=== PATIENT | male | born 1935 | race Caucasian/White ===

== ENCOUNTER 2016-12-11 14:36 | Outpatient (CLI) | payer MEDICARE ==
[2016-12-11 15:05] LABS: Anion Gap 14 mmol/L (10-20); BUN (Urea Nitrogen) 36 mg/dL (8.4-25.7); Calc. Creatinine Clearance 0 mL/min (70-130); Calcium 8.4 mg/dL (7.8-10.44); Carbon Dioxide 21 mmol/L (23-31); Chloride 111 mmol/L (98-107); Estimated GFR-MDRD 34; Glucose 96 mg/dL (83-110); Potassium 4.8 mmol/L (3.5-5.1); Sodium 141 mmol/L (136-145)
== END 2016-12-11 14:37 | disposition home or self-care (01) ==
LOC: MADLAB 14:36
PROVIDERS: ATTEND Internal Medicine Nephrology
DX: I13.0 Hypertensive heart and chronic kidney disease with heart failure and stage 1 through stage 4 chronic kidney disease, or unspecified chronic kidney disease (principal); I50.23 Acute on chronic systolic (congestive) heart failure; N18.9 Chronic kidney disease, unspecified
CPT/HCPCS: 36415; 80048

== ENCOUNTER 2016-12-17 18:41 | Outpatient (CLI) | payer MEDICARE ==
[2016-12-17 20:22] LABS: Anion Gap 19 mmol/L (10-20); BUN (Urea Nitrogen) 44 mg/dL (8.4-25.7); Calc. Creatinine Clearance 0 mL/min (70-130); Calcium 8.6 mg/dL (7.8-10.44); Carbon Dioxide 20 mmol/L (23-31); Chloride 110 mmol/L (98-107); Estimated GFR-MDRD 26; Glucose 77 mg/dL (83-110); Potassium 4.6 mmol/L (3.5-5.1); Sodium 144 mmol/L (136-145)
[2016-12-18 11:43] LABS: Creatinine, Urine 50.27 mg/dL (63-166); Potassium, Urine 30.4 mmol/L; Protein, Urine Random Quant Less than 10 mg/dL; Sodium, Urine 87 mmol/L (Not Available)
== END 2016-12-17 18:42 | disposition home or self-care (01) ==
LOC: MADLAB 18:41
PROVIDERS: ATTEND Internal Medicine Nephrology
DX: I13.0 Hypertensive heart and chronic kidney disease with heart failure and stage 1 through stage 4 chronic kidney disease, or unspecified chronic kidney disease (principal); I50.23 Acute on chronic systolic (congestive) heart failure; N18.9 Chronic kidney disease, unspecified
CPT/HCPCS: 80048; 82436; 82570; 83880; 84133; 84156; 84300

== ENCOUNTER 2016-12-28 16:22 | Inpatient (IN) | payer MEDICARE ==
--- NOTE | 2016-12-28 19:56 | HP ---
The patient admitted to correction at [facility] on 12/28/2016. CHIEF COMPLAINT: Weak. PRESENT ILLNESS: The patient is an 81-year-old white male who lives at his home with his who assist him with his ADLs and all his instrumental ADLs. Patient has a history of ischemic cardiomyopathy with an ejection fraction of 25 %-30% with a history of chronic diastolic congestive heart failure. He also has a history of diabetes, atrial fibrillation, hypertension, chronic renal disease. The patient is seen by [facility]. The patient was referred to the emergency room on 12/20/2016, because home health found that his blood pressure was very low, the patient remembers it was about 75/45. He also had been sick with bronchitis. The patient was initially seen in the [facility] emergency room in [place] and then transferred to [facility] for admission on 12/20/2016. The patient's final diagnosis there was an acute bronchitis, cfo-WQ-[id number] elevated myocardial infarction, acute on chronic renal failure, dehydration and chronic atrial fibrillation, which the rate has been controlled. Patient's pxk-EO-hhvqpdp elevated myocardial infarction was managed medically. He apparently underwent a stress test that showed no acute reversible ischemia. The patient had some mild congestive heart failure that apparently resolved. The patient was moved to extended care to rehab at [facility] on 12/25/2016. The family wanted to get back to the [place] area for further therapy, because it would just be much easier for the family and keep him off the highway to [place] to see him and assisting him. Patient was transferred to [facility] on the late afternoon of 12/28/2016. Patient was interviewed and said that he had been hospitalized recently in [place] for the low blood pressure and the bronchitis and he was doing better , but still very weak and not back to his usual baseline. He also said that he had recently injured his right foot with what sounds like a hyperextension of the toes resulting in bruising and swelling to the forefoot dorsally. X-ray showed no fracture. He said he has been managed with a walking lower leg boot and at nighttime he takes this off. He says his foot is a little better, but is swelled. He said his breathing is doing better, but he still has a little cough. PAST HISTORY: Hospitalized at [facility] from 12/20/2016-12/2016 for [id number]-RV-[id number] elevated myocardial infarction, medically managed, stress test showed no acute ischemia, mild congestive heart failure, apparently that resolved and some dehydration and acute renal failure from the dehydration. This all had resolved. He also has chronic atrial fibrillation for which he has been on Xarelto and was started on Eliquis. The patient was moved to the [facility] on 12/25/2016 where he stayed until 12/28. Historically, the patient has ischemic cardiomyopathy with an ejection fraction of 25%-30%, complicated by chronic diastolic congestive failure. He has an AICD, he has a history of hypertension, hyperlipidemia, obstructive sleep apnea for which he uses a CPAP and oxygen at nighttime. Patient had an acute bronchitis that is getting better. Patient has had a left cerebellar stroke in the past that has left him with no impairment. The patient also has a history of diabetes, but do not see any record of that he is receiving anything other than regular insulin on sliding scale during his hospital stay. Peripheral neuropathy. S/P CAB, S/P AICD/pacemaker and S/P abdominal aortic aneursym resection. PRESENT MEDICINES: Lyrica 75 mg t.i.d., DuoNeb by nebulizer 4 times a day as needed, Eliquis 2.5 mg b.i.d., Humulin R mild sliding scale, Nexium 40 mg daily , potassium chloride 10 mEq daily, aspirin 325 mg daily, furosemide 40 mg daily , Xarelto 15 mg daily, metoprolol succinate extended release 100 mg b.i.d., Cymbalta 60 mg daily. ALLERGIES: No known allergies. REVIEW OF SYSTEMS: General: Patient does not think he has gained or lost any recent weight. HEENT: No complaints. Pulmonary: Patient says he has a little cough. The patient denies any shortness of breath at rest or lying down. Cardiovascular: No chest pain. Gastrointestinal: No nausea or vomiting or change in bowel habits. Genitourinary: No complaints. Musculoskeletal: Right foot is bruised and swelled and he thinks it is a little better. He is able to walk with the use of his walking boot. He can walk some without it. ADLs: The patient is able to ambulate with the use of a walker. Patient says he needs a little help with bathing and dressing. Patient is able to feed himself. The patient requires assistance with all his instrumental ADLs. HABITS: Alcohol occasionally. Patient will have a beer. Tobacco none. SOCIAL HISTORY: Patient lives at home with his . CODE STATUS: DNR. PHYSICAL EXAMINATION: GENERAL: Shows an 81-year-old white male who is sitting in his bedside and preparing to have supper. He is alert, talkative, and appears comfortable in no distress. He is wearing O2 by nasal cannula at 2 liters and has a walking boot on his right foot lower leg. VITAL SIGNS: His temperature is 97.3, respirations 22, O2 saturation was 88 on room air, blood pressure 110/73. His weight is 226. 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 EYES: Pupils are equal, round, and reactive. EARS: Patient wears a hearing aid in the left ear, there are some cerumen obscuring the TMs bilaterally. NOSE: Normal. MOUTH AND THROAT: Normal. NECK: Carotids are equal and strong, could not hear any bruits. LUNGS: The patient has moderate breath sounds. There is expiratory rhonchi on expiration, did not hear any rales. HEART: Regular rate. ABDOMEN: Obese. No organomegaly. EXTREMITIES: Lower extremities, there is trace edema. The lower leg boot on the right lower leg foot was removed. There is moderate edema in the right foot with bruising over the forefoot and toes. The foot is warm, but could not feel the dorsalis pedis. There is a contusion to the right foot. NEUROLOGIC: The patient is alert and knows he is in the hospital and seemed to understand what has recently happened with him. He has generalized weakness, but no focal weakness. IMPRESSION: 1. Weakness and deconditioning and gait abnormality. A. Exacerbated with the acute illness and hospitalization. B. Gait stabilized with a rolling walker. 2. Hospitalized at [facility] from 12/20/2016 until 2016 for xak-VL-lxhrodh elevated myocardial infarction with no ischemia on stress test, medically managed, acute bronchitis, dehydration with acute on chronic kidney disease and atrial fibrillation. 3. Ischemic cardiomyopathy. A. Ejection fraction per patient 25%-30%. B. Complicated by chronic diastolic congestive failure. 1. No evidence of acute congestive heart failure as of admission on . 2. Status post AICD. 4. Coronary artery disease. A. History of a hht-QE-bcammmm elevated myocardial infarction, managed medically with a stress test showing no acute ischemia occurred on 12/20/2016. 5. Chronic atrial fibrillation. A. Rate controlled. B. On chronic anticoagulation. 6. Hypertension. 7. Chronic kidney disease. A. Complicated by acute renal failure from dehydration that has resolved. 8. Episode of hypotension upon admission to the hospital on 12/20/2016. A. Etiology, it is felt that the patient may have missed taking medication resulting in the hypotensive episode. 9. Obstructive sleep apnea. A. On CPAP. 10. Hypoxemia. A. Utilizes O2 when sleeping and p.r.n. 11. Acute bronchitis, improving. 12. Suspect underlying chronic obstructive pulmonary disease. 13. Diabetes type 2. 14. Peripheral neuropathy of the lower extremities. PLAN: The patient has been admitted to [facility] to the correction unit for purpose of physical therapy and occupational therapy in an effort to improve his functional capability. We will leave the patient on the Eliquis. His records show also Xarelto, we will stop this. We will reassess the patient with chest x-ray and EKG and general lab work in the morning. See orders. CODE STATUS: DNR. MTDD
--- NOTE | 2016-12-28 19:57 | RAD ---
RADIOGRAPH CHEST 1 VIEW: 12/28/16 HISTORY: 81-year-old male with bronchitis and cardiomyopathy. COMPARISON: None. FINDINGS: There is cardiomegaly. There is no evidence of air space density, pulmonary edema, or pneumothorax. The lateral costophrenic angles are sharp. IMPRESSION: 1) No acute pulmonary findings. 2) Severe cardiomegaly without congestive heart failure. 3) Automatic implantable cardioverter/defibrillator. 4) Status post coronary artery bypass graft surgery is evidence for coronary atherosclerotic disease . leela [] POS: YASIR
[2016-12-28] MEDS: Pregabalin 25 MG CAP PO SCH (20:51)
[2016-12-28] MEDS: Apixaban 5 MG TAB PO SCH (20:51)
[2016-12-28] MEDS: Acetaminophen 325 MG TAB PO PRN (21:32)
[2016-12-29 05:18] LABS: Hemoglobin A1c 5.9 % (4.0-6.0)
[2016-12-29 05:26] LABS: ALT (SGPT) 11 U/L (8-55); AST (SGOT) 20 U/L (5-34); Albumin 3.2 g/dL (3.4-4.8); Alkaline Phosphatase 83 U/L (40-150); Anion Gap 15 mmol/L (10-20); BUN (Urea Nitrogen) 67 mg/dL (8.4-25.7); Bilirubin, Total 0.8 mg/dL (0.2-1.2); Calc. Creatinine Clearance 31 mL/min (70-130); Calcium 8.8 mg/dL (7.8-10.44); Carbon Dioxide 25 mmol/L (23-31); Cardiac Risk 3.4 (Less than 4.5); Cholesterol 114 mg/dl (< 200 Desired); Estimated GFR-MDRD 23; Glucose 104 mg/dL (83-110); HDL Cholesterol 34 mg/dL (>60 Neg Risk); LDL Cholesterol, Calculated 66 mg/dL; Triglycerides 71 mg/dL (Less than 150)
[2016-12-29 05:35] LABS: #Basophils 0.1 thou/uL (0.0-0.2); #Eosinphils 0.4 thou/uL (0.0-0.7); #Lymphocytes 1.5 thou/uL (1.20-3.40); #Monocytes 0.6 thou/uL (0.11-0.59); #Neutrophils 2.6 thou/uL (1.40-6.50); %Basophils 1.4 % (0.0-1.0); %Eosinophils 7.1 % (0.0-10.0); %Lymphocytes 28.7 % (21.0-51.0); %Neutrophils 50.8 % (42.0-75.0); Hemoglobin 11.5 g/dL (14.0-18.0); Mean Corpuscular HGB CONC 31.8 g/dL (32.0-36.0); Mean Corpuscular Hemoglobin 31.6 pg (27.0-31.0); Mean Corpuscular Volume 99.4 fl (80.0-94.0); Platelet Count 90 thou/uL (130-400); RBC Distribution Width 15.3 % (11.5-14.5); Red Blood Cell (RBC) Count 3.65 mill/uL (4.70-6.10); White Blood Cell (WBC) Count 5.1 thou/uL (4.8-10.8)
[2016-12-29 05:36] LABS: Anisocytosis SLIGHT = 6-15 cells (100X) (0-5/hpf); Eosinophils 8 % (0-10); Giant Platelets SLIGHT; Hypochromia SLIGHT = 6-15 cells (100X) (0-5/hpf); Lymphocytes 21 % (21-51); MDiff Complete? YES; Macrocytosis SLIGHT = 6-15 cells (100X) (0-5/hpf); Monocytes 10 % (0-10); Neutrophil 61 % (42-75); PLT Morphology Comment Appears Decreased; Poikilocytosis SLIGHT = 6-15 cells (100X) (0-5/hpf); RBC Morphology ABNORMAL
[2016-12-29 05:40] LABS: Globulin 1.7 g/dL (2.4-3.5); Protein, Total 4.9 g/dL (5.8-8.1)
[2016-12-29 05:44] LABS: Sodium 139 mmol/L (136-145)
[2016-12-29 05:47] LABS: Chloride 103 mmol/L (98-107)
[2016-12-29] MEDS: Furosemide 40 MG TAB PO SCH (08:44)
[2016-12-29] MEDS: Aspirin 325 MG TAB PO SCH (08:44)
[2016-12-29] MEDS: Apixaban 5 MG TAB PO SCH ×2 (08:45→20:20)
[2016-12-29] MEDS: Potassium Chloride 10 MEQ TAB PO SCH (08:46)
[2016-12-29] MEDS: Pregabalin 25 MG CAP PO SCH ×3 (08:47→20:21)
--- NOTE | 2016-12-29 13:26 | PRG ---
DATE OF SERVICE: 12/29/2016 SUBJECTIVE: The patient says he feels better today. Rested well last night, he is still cough vladislav le bit, he thinks it is about the same. His foot is feeling a little better. OBJECTIVE: GENERAL: The patient is lying in bed. He is very talkative, looks very comfortable and in no distr ess. VITAL SIGNS: His vital signs shows a temperature of 96.4, pulse 96, respirations 20, O2 saturation on 2 liters 96%, blood pressure 128/86. LUNGS: Have expiratory rhonchi present. There are no rales. HEART: Regular rate with occasional ectopic beat. EXTREMITIES: Trace edema. DIAGNOSTIC AND LABORATORY DATA: EKG shows probable paced rhythm with occasional ectopic beat, rate was 108. Chest x-ray shows cardiomegaly. There was no pulmonary density nor edema. The patient do es have severe cardiomegaly without acute CHF and he has an AICD present. His labs shows an H\T\H o f 11.5 and 36.3, white blood cell count 5100 with 61% segs, 29% lymphocytes, and platelet count 90,0 00. Sodium 139, potassium 4, BUN 67, creatinine 2.65 with a GFR of 23. FBS 115, hemoglobin A1c 5.9 , albumin 3.2, cholesterol 114, LDL 66, triglycerides 71, HDL 34. TSH 1.84. IMPRESSION: 1. Weakness and deconditioning and gait abnormality. A. Exacerbated with the acute illness and hospitalization. B. Gait stabilized with a rolling walker. C. Stable as of 12/30/2016. 2. Hospitalized at [facility] from 12/20/2016 until 12/28/2016 for ikj-GS-[id number] elevated myocardial infarction with no ischemia on stress test, medically managed, acute bronchitis , dehydration with acute on chronic kidney disease and atrial fibrillation. 3. Ischemic cardiomyopathy. A. Ejection fraction per patient 25%-30%. B. Complicated by chronic diastolic congestive failure. 1. No evidence of acute congestive heart failure as of admission on 12/29/2014. 2. Status post AICD/pacemaker. 4. Coronary artery disease. A. History of a yxu-OY-jxrektw elevated myocardial infarction, managed medically with a stress test showing no acute ischemia occurred on 12/20/2016. B. Status post CAD. 5. Chronic atrial fibrillation. A. Rate controlled. B. On chronic anticoagulation. 6. Hypertension. 7. Chronic kidney disease. A. Complicated by acute renal failure from dehydration that has resolved. GFR 23 as of 12/29/2016. 8. Episode of hypotension upon admission to the hospital on 12/20/2016. A. Etiology, it is felt that the patient may have missed taking medication resulting in the hypoten sive episode. 9. Obstructive sleep apnea. A. On CPAP. 10. Hypoxemia. A. Utilizes O2 when sleeping and p.r.n. 11. Acute bronchitis, improving. 12. Suspect underlying chronic obstructive pulmonary disease. 13. Diabetes type 2. Hemoglobin A1c 5.9 and FBS 104 on no medication. 14. Peripheral neuropathy of the lower extremities. PLAN: The patient looks little better today. Physical therapy, occupational therapy will begin wor jaki with him. We will continue his present medicines. Continue neb treatments. We will monitor r enal function and way every other day.
[2016-12-30] MEDS: Pregabalin 25 MG CAP PO SCH ×3 (08:00→20:28)
[2016-12-30] MEDS: Aspirin 325 MG TAB PO SCH (08:02)
[2016-12-30] MEDS: Furosemide 40 MG TAB PO SCH (08:03)
[2016-12-30] MEDS: Apixaban 5 MG TAB PO SCH ×2 (08:03→20:27)
[2016-12-30] MEDS: Potassium Chloride 10 MEQ TAB PO SCH (08:04)
[2016-12-30] MEDS: Pregabalin 50 MG CAP PO SCH ×2 (15:09→20:27)
[2016-12-30] MEDS: Acetaminophen 325 MG TAB PO PRN (20:43)
[2016-12-31 06:41] LABS: Anion Gap 15 mmol/L (10-20); BUN (Urea Nitrogen) 66 mg/dL (8.4-25.7); Calc. Creatinine Clearance 33 mL/min (70-130); Calcium 9.2 mg/dL (7.8-10.44); Carbon Dioxide 24 mmol/L (23-31); Chloride 108 mmol/L (98-107); Estimated GFR-MDRD 25; Glucose 108 mg/dL (83-110); Potassium 4.1 mmol/L (3.5-5.1); Sodium 143 mmol/L (136-145)
[2016-12-31 07:13] LABS: #Basophils 0.1 thou/uL (0.0-0.2); #Eosinphils 0.2 thou/uL (0.0-0.7); #Lymphocytes 1.3 thou/uL (1.20-3.40); #Monocytes 0.5 thou/uL (0.11-0.59); #Neutrophils 2.2 thou/uL (1.40-6.50); %Basophils 1.2 % (0.0-1.0); %Eosinophils 6.1 % (0.0-10.0); %Lymphocytes 29.8 % (21.0-51.0); %Neutrophils 50.9 % (42.0-75.0); Hemoglobin 12.6 g/dL (14.0-18.0); Mean Corpuscular HGB CONC 32.2 g/dL (32.0-36.0); Mean Corpuscular Hemoglobin 32.3 pg (27.0-31.0); Mean Corpuscular Volume 100.6 fl (80.0-94.0); Mean Platelet Volume 9.4 fL (7.4-10.4); Platelet Count 100 thou/uL (130-400); RBC Distribution Width 15.5 % (11.5-14.5); Red Blood Cell (RBC) Count 3.87 mill/uL (4.70-6.10); White Blood Cell (WBC) Count 4.1 thou/uL (4.8-10.8)
[2016-12-31 07:19] LABS: MDiff Complete? YES; Manual Diff?? YES
[2016-12-31 07:20] LABS: Anisocytosis SLIGHT = 6-15 cells (100X) (0-5/hpf); Band 1 % (5-11); Eosinophils 1 % (0-10); Lymphocytes 27 % (21-51); Monocytes 8 % (0-10); Neutrophil 68 % (42-75)
[2016-12-31 07:21] LABS: PLT Morphology Comment Appears Decreased
[2016-12-31] MEDS: Furosemide 40 MG TAB PO SCH (08:25)
[2016-12-31] MEDS: Potassium Chloride 10 MEQ TAB PO SCH (08:26)
[2016-12-31] MEDS: Aspirin 325 MG TAB PO SCH (08:26)
[2016-12-31] MEDS: Apixaban 5 MG TAB PO SCH ×2 (08:27→20:11)
[2016-12-31] MEDS ORDERED: Pregabalin 25 MG CAP PO SCH (09:00)
--- NOTE | 2016-12-31 09:00 | PRG ---
DATE SERVICE: 12/31/2016 SUBJECTIVE: The patient thinks he is doing better. He says his right foot feels better. He says h e had a good night. He is sleeping with the CPAP mask. The patient yesterday had a left lower cani ne tooth that broke, it was on the left lower. He has only those 2 teeth on the mandible that are used to secure a lower denture. The patient says he will see his dentist about this. The area is n ot hurting. OBJECTIVE: The patient is lying in bed. He is alert and appears very comfortable and in no distres s. His temperature is 96.1, pulse 101, respirations 16, O2 sat 96% on 2 liters, blood pressure 133/ 80. His weight is stable at 226. His lungs have no rales. There are good breath sounds. There ar e some coarse expiratory breath sounds and some rhonchi, but these are less. Heart, regular rate. E xtremities, no edema. The bruising and swelling over the dorsum of the right foot and toes is dimin ishing. Lab shows an H\T\H of 12.6 and 38.7. White cell count 4100 with 68% segs, 30% lymphocytes, and plat elet count of up to 100,000. His sodium is 143, potassium 4.1. His BUN is 66, creatinine 2.45. GF R is up to 25. FBS is 108. On the mouth, the patient's mandibular teeth shows that he has remaining right-sided canine tooth. The one on the left side has fractured, it looks like there is remnants of tooth at the gumline. Th ere is no surrounding redness. IMPRESSION: 1. Weakness and deconditioning and gait abnormality. A. Exacerbated with the acute illness and hospitalization. B. Gait stabilized with a rolling walker. C. Stable as of 12/31/2016. 2. Hospitalized at [facility] from 12/20/2016 until 12/28/2016 for mmx-WT-mzrbwse elevated myocardial infarction with no ischemia on stress test, medically managed, acute bronchitis , dehydration with acute on chronic kidney disease and atrial fibrillation. 3. Ischemic cardiomyopathy. A. Ejection fraction per patient 25%-30%. B. Complicated by chronic diastolic congestive failure. 1. No evidence of acute congestive heart failure as of 12/31/2016. 2. Status post AICD/pacemaker. 4. Coronary artery disease. A. History of a abd-FS-zxlmrqh elevated myocardial infarction, managed medically with a stress test showing no acute ischemia occurred on 12/20/2016. B. Status post CAD. 5. Chronic atrial fibrillation. A. Rate controlled. B. On chronic anticoagulation. 6. Hypertension. 7. Chronic kidney disease. A. Complicated by acute renal failure from dehydration that has resolved. GFR 23 as of 12/29/2016. B. GFR 25 as of 12/31/2016. 8. Episode of hypotension upon admission to the hospital on 12/20/2016. A. Etiology, it is felt that the patient may have missed taking medication resulting in the hypoten sive episode. 9. Obstructive sleep apnea. A. On CPAP. 10. Hypoxemia. A. Utilizes O2 when sleeping and p.r.n. 11. Acute bronchitis. A. Improving as of 12/31/2016. 12. Suspect underlying chronic obstructive pulmonary disease. 13. Diabetes type 2. Hemoglobin A1c 5.9 and FBS 104 on no medication. 14. Peripheral neuropathy of the lower extremities. 15. Contusion to the right forefoot. A. Improving with decreased bruising and swelling as of 12/31/2016. PLAN: The patient looks better today. We will continue present care. We will continue physical th erapy. The patient will arrange for dental appointment to have that tooth that broke fixed and see what they can do to help stabilize his lower dentures. For present patient's diet has been changed t o a mechanical soft.
[2016-12-31] MEDS: Pregabalin 50 MG CAP PO SCH ×2 (14:01→20:11)
[2016-12-31] MEDS: Pregabalin 25 MG CAP PO SCH ×2 (14:02→20:12)
[2016-12-31] MEDS: Acetaminophen 325 MG TAB PO PRN (20:21)
[2017-01-01] MEDS: Potassium Chloride 10 MEQ TAB PO SCH (08:54)
[2017-01-01] MEDS: Aspirin 325 MG TAB PO SCH (08:55)
[2017-01-01] MEDS: Furosemide 40 MG TAB PO SCH (08:55)
[2017-01-01] MEDS: Pregabalin 25 MG CAP PO SCH ×3 (08:56→20:19)
[2017-01-01] MEDS: Apixaban 5 MG TAB PO SCH ×2 (08:56→20:19)
[2017-01-01] MEDS: Pregabalin 50 MG CAP PO SCH ×3 (08:57→20:20)
--- NOTE | 2017-01-01 10:45 | PRG ---
DATE OF SERVICVE: 01/01/2017 SUBJECTIVE: The patient said he is feeling good. Slept good last night. He is walking better. He said his right foot feels a lot better. He has been walking some without the boot and it feels fin e without the boot on. He is scheduled to see a dentist this early afternoon. OBJECTIVE: GENERAL: The patient is alert, talkative, and appears very comfortable and in no distress. VITAL SIGNS: His temperature is 97.1, pulse 79, respirations 20, O2 sat 95% on 2 liters, blood pres sure 138/80. His weights is 224. LUNGS: Clear with good breath sounds. There were no rales, wheezes or rhonchi. HEART: Regular rate. EXTREMITIES: The edema in the right foot is much less, which is mild amount, the bruising over the toes is also fading and the bruising over the dorsal foot is fading and tenderness is pretty much im proved. IMPRESSION: 1. Weakness and deconditioning and gait abnormality. A. Exacerbated with the acute illness and hospitalization. B. Gait stabilized with a rolling walker. C. Stable as of 01/01/2017. 2. Hospitalized at [facility] from 12/20/2016 until 12/28/2016 for egx-TJ-ldxyxng elevated myocardial infarction with no ischemia on stress test, medically managed, acute bronchitis , dehydration with acute on chronic kidney disease and atrial fibrillation. 3. Ischemic cardiomyopathy. A. Ejection fraction per patient 25%-30%. B. Complicated by chronic diastolic congestive failure. 1. No evidence of acute congestive heart failure as of 01/01/2017. 2. Status post AICD/pacemaker. 4. Coronary artery disease. A. History of a zqt-DY-yaakwdz elevated myocardial infarction, managed medically with a stress test showing no acute ischemia occurred on 12/20/2016. B. Status post CAD. 5. Chronic atrial fibrillation. A. Rate controlled. B. On chronic anticoagulation. 6. Hypertension. 7. Chronic kidney disease. A. Complicated by acute renal failure from dehydration that has resolved. GFR 23 as of 12/29/2016. B. GFR 25 as of 12/31/2016. 8. Episode of hypotension upon admission to the hospital on 12/20/2016. A. Etiology, it is felt that the patient may have missed taking medication resulting in the hypoten sive episode. 9. Obstructive sleep apnea. A. Use CPAP when sleeping. 10. Hypoxemia. A. Utilizes O2 when sleeping and p.r.n. 11. Acute bronchitis. A. Resolving with no wheezing and excellent breath sounds as of 01/01/2017. 12. Suspect underlying chronic obstructive pulmonary disease. 13. Diabetes type 2. Hemoglobin A1c 5.9 and FBS 104 on no medication. 14. Peripheral neuropathy of the lower extremities. 15. Contusion to the right forefoot. A. Improved with decreased swelling and bruising and no difficulty ambulating as of 01/01/2017 . PLAN: Continue physical therapy. We will discontinue the walking boot when patient is ambulating s leandra foot is improved and there are no bony injuries or ligamentous injury. The patient is due to s ee his dentist today. Continue present medication.
[2017-01-01] MEDS: Acetaminophen 325 MG TAB PO PRN (20:19)
[2017-01-02] MEDS: Furosemide 40 MG TAB PO SCH (08:31)
[2017-01-02] MEDS: Pregabalin 50 MG CAP PO SCH ×3 (08:32→20:45)
[2017-01-02] MEDS: Apixaban 5 MG TAB PO SCH ×2 (08:33→20:41)
[2017-01-02] MEDS: Aspirin 325 MG TAB PO SCH (08:34)
[2017-01-02] MEDS: Pregabalin 25 MG CAP PO SCH ×3 (08:34→20:46)
[2017-01-02] MEDS: Potassium Chloride 10 MEQ TAB PO SCH (08:35)
[2017-01-03] MEDS: Aspirin 325 MG TAB PO SCH (08:50)
[2017-01-03] MEDS: Furosemide 40 MG TAB PO SCH (08:50)
[2017-01-03] MEDS: Potassium Chloride 10 MEQ TAB PO SCH (08:51)
[2017-01-03] MEDS: Pregabalin 25 MG CAP PO SCH ×4 (08:51→21:02)
[2017-01-03] MEDS: Apixaban 5 MG TAB PO SCH ×2 (08:53→21:06)
[2017-01-03] MEDS: Pregabalin 50 MG CAP PO SCH ×3 (08:54→21:06)
[2017-01-03] MEDS: Acetaminophen 325 MG TAB PO PRN (12:56)
--- NOTE | 2017-01-03 14:46 | PRG ---
DATE OF SERVICE: 01/03/2017 SUBJECTIVE: The patient said he is feeling better. The patient said that he did go see the dentist and the dentist said that those two lower canine teeth need to be removed and then a lower plate ca n be made for him. He will arrange this when he is ready. Also received a call from the patient's lining machine tender in [place], Dr. Flor Fu, who said that his pacemaker AICD battery life is near e nding. He is going to be scheduled to re-see him, so he can visit with his lining machine tender about this and arrangements made for replacement. The patient is just finishing working out on an exercise mac [employer], he is going further and doing better. Therapist says he is tolerating this well. OBJECTIVE: GENERAL: The patient is alert and appears in no distress. VITAL SIGNS: His temperature is 96.2, pulse 74, respirations 20, O2 saturation 94% on 2 liters, and blood pressure was 149/92, earlier 143/81. LUNGS: Clear. HEART: Regular rate. EXTREMITIES: Feet, there is no edema. Right foot, he is able now to comfortably put in his walking slipper, the swelling is continues to diminish and bruising diminishing. ASSESSMENT: 1. Weakness and deconditioning and gait abnormality. A. Exacerbated with the acute illness and hospitalization. B. Gait stabilized with a rolling walker. C. Good improvement as of 01/03/2017. 2. Hospitalized at [facility] from 12/20/2016 until 12/28/2016 for krc-OY-zefvahb elevated myocardial infarction with no ischemia on stress test, medically managed, acute bronchitis , dehydration with acute on chronic kidney disease and atrial fibrillation. 3. Ischemic cardiomyopathy. A. Ejection fraction per patient 25%-30%. B. Complicated by chronic diastolic congestive failure. 1. No evidence of acute congestive heart failure as of 01/03/2017. 2. Status post AICD/pacemaker. C. Near end of life of battery of the AICD pacemaker. 4. Coronary artery disease. A. History of a ane-QO-ypwdtwz elevated myocardial infarction, managed medically with a stress test showing no acute ischemia occurred on 12/20/2016. B. Status post CAD. 5. Chronic atrial fibrillation. A. Rate controlled. B. On chronic anticoagulation. 6. Hypertension. 7. Chronic kidney disease. A. Complicated by acute renal failure from dehydration that has resolved. GFR 23 as of 12/29/2016. B. GFR 25 as of 12/31/2016. 8. Episode of hypotension upon admission to the hospital on 12/20/2016. A. Etiology, it is felt that the patient may have missed taking medication resulting in the hypoten sive episode. 9. Obstructive sleep apnea. A. Use CPAP when sleeping. 10. Hypoxemia. A. Utilizes O2 when sleeping and p.r.n. 11. Acute bronchitis. A. Resolved as of 01/03/2017. 12. Suspect underlying chronic obstructive pulmonary disease. 13. Diabetes type 2. Hemoglobin A1c 5.9 and FBS 104 on no medication. 14. Peripheral neuropathy of the lower extremities. 15. Contusion to the right forefoot. A. Continued improvement where he is ambulating fine without the addition of the walking boot as of 01/03/2017. PLAN: Continue the physical therapy. Arrangements will be made for patient sees his lining machine tender, Dr. Flor Fu, so they can discuss and set up battery replacement or replacement of the AICD pacem [place]. The patient when ready, we will arrange for the dental extractions. Presently, he is comfort able and eating well on the mechanical soft diet.
[2017-01-04 05:33] LABS: Anion Gap 18 mmol/L (10-20); BUN (Urea Nitrogen) 60 mg/dL (8.4-25.7); Calc. Creatinine Clearance 28 mL/min (70-130); Calcium 9.1 mg/dL (7.8-10.44); Carbon Dioxide 23 mmol/L (23-31); Chloride 109 mmol/L (98-107); Estimated GFR-MDRD 22; Glucose 127 mg/dL (83-110); Potassium 4.3 mmol/L (3.5-5.1)
[2017-01-04 05:43] LABS: #Basophils 0.1 thou/uL (0.0-0.2); #Eosinphils 0.3 thou/uL (0.0-0.7); #Lymphocytes 1.3 thou/uL (1.20-3.40); #Monocytes 0.5 thou/uL (0.11-0.59); %Basophils 1.6 % (0.0-1.0); %Eosinophils 6.8 % (0.0-10.0); %Lymphocytes 30.1 % (21.0-51.0); %Monocytes 12.2 % (0.0-10.0); %Neutrophils 49.2 % (42.0-75.0); Eosinophils 9 % (0-10); Hemoglobin 11.9 g/dL (14.0-18.0); Hypochromia SLIGHT = 6-15 cells (100X) (0-5/hpf); Lymphocytes 24 % (21-51); MDiff Complete? YES; Macrocytosis SLIGHT = 6-15 cells (100X) (0-5/hpf); Mean Corpuscular HGB CONC 31.4 g/dL (32.0-36.0); Mean Corpuscular Hemoglobin 31.3 pg (27.0-31.0); Mean Corpuscular Volume 99.7 fl (80.0-94.0); Mean Platelet Volume 8.5 fL (7.4-10.4); Microcytosis SLIGHT = 6-15 cells (100X) (0-5/hpf); Monocytes 10 % (0-10); Neutrophil 57 % (42-75); PLT Morphology Comment Appears Decreased; Platelet Count 101 thou/uL (130-400); RBC Distribution Width 15.2 % (11.5-14.5); RBC Morphology ABNORMAL; Red Blood Cell (RBC) Count 3.81 mill/uL (4.70-6.10); White Blood Cell (WBC) Count 4.1 thou/uL (4.8-10.8)
[2017-01-04 05:46] LABS: Sodium 146 mmol/L (136-145)
[2017-01-04] MEDS: Apixaban 5 MG TAB PO SCH ×2 (08:25→20:53)
[2017-01-04] MEDS: Aspirin 325 MG TAB PO SCH (08:25)
[2017-01-04] MEDS: Furosemide 40 MG TAB PO SCH (08:26)
[2017-01-04] MEDS: Pregabalin 25 MG CAP PO SCH ×3 (08:27→20:50)
[2017-01-04] MEDS: Pregabalin 50 MG CAP PO SCH ×3 (08:27→20:52)
[2017-01-04] MEDS: Potassium Chloride 10 MEQ TAB PO SCH (08:27)
--- NOTE | 2017-01-04 10:35 | PRG ---
DATE OF SERVICE: 01/04/2017 SUBJECTIVE: The patient said he thinks he is doing better. He is doing better with his therapy. H is right foot is feeling better. He is walking fine without the walking cast was just a slipper on. The patient said he still has a little cough, but does not feel congested. OBJECTIVE: The patient is sitting up in a bedside chair, having finished his breakfast. He is aler t, talkative, appears very comfortable in no distress. Vital signs show a temperature 98.6, pulse 9 6, respirations 16, O2 sat 97% on 2 liters, blood pressure 135/92. His lungs have good breath sound s. There is some intermittent mild coarseness, but no wheezes and no significant rhonchi. Heart, r egular rate. Extremities, no edema. H\T\H 11.9 and 38, white cell count 4100 with 57% segs, 30% lymphocytes, and a platelet count of 101 ,000. His sodium is 146, potassium 4.3, BUN down to 60, creatinine 2.8, GFR 22. FBS 127. ASSESSMENT: 1. Weakness and deconditioning and gait abnormality. A. Exacerbated with the acute illness and hospitalization. B. Gait stabilized with a rolling walker. C. Good improvement as of 01/04/2017. 2. Hospitalized at [facility] from 12/20/2016 until 12/28/2016 for [id number] elevated myocardial infarction with no ischemia on stress test, medically managed, acute bronchitis , dehydration with acute on chronic kidney disease and atrial fibrillation. 3. Ischemic cardiomyopathy. A. Ejection fraction per patient 25%-30%. B. Complicated by chronic diastolic congestive failure. 1. No evidence of acute congestive heart failure as of 01/04/2017. 2. Status post AICD/pacemaker. C. Near end of life of battery of the AICD pacemaker. 4. Coronary artery disease. A. History of a [id number]-[id number] elevated myocardial infarction, managed medically with a stress test showing no acute ischemia occurred on 12/20/2016. B. Status post CAD. 5. Chronic atrial fibrillation. A. Rate controlled. B. On chronic anticoagulation. 6. Hypertension. A. Control as of 01/04/2017. 7. Chronic kidney disease. A. Complicated by acute renal failure from dehydration that has resolved. GFR 23 as of 12/29/2016. B. GFR 22 as of 01/04/2017, it was 25 on 12/31/2016. 8. Episode of hypotension upon admission to the hospital on 12/20/2016. A. Etiology, it is felt that the patient may have missed taking medication resulting in the hypoten sive episode. B. No recurrence of hypotensive episodes as of 01/04/2017. 9. Obstructive sleep apnea. A. Use CPAP when sleeping. 10. Hypoxemia. A. Utilizes O2 when sleeping and p.r.n. 11. Acute bronchitis. A. Resolved as of 01/03/2017. 12. Suspect underlying chronic obstructive pulmonary disease. 13. Diabetes type 2. Hemoglobin A1c 5.9 and FBS 104 on no medication. 14. Peripheral neuropathy of the lower extremities. 15. Contusion to the right forefoot. A. Continued improvement where he is ambulating fine without the addition of the walking boot as of 01/03/2017. B. Continued improvement as of 01/04/2017. PLAN: Continue the physical therapy. Arrangements will be made for patient sees his tile layer supervisor, Dr. Flor Fu, so th PLAN: Continue physical therapy. Continue present medications. Arrangements being made for the wilson fany to see his tile layer supervisor regarding battery decline in his pacemaker, AICD.
[2017-01-05] MEDS: Potassium Chloride 10 MEQ TAB PO SCH (08:35)
[2017-01-05] MEDS: Aspirin 325 MG TAB PO SCH (08:35)
[2017-01-05] MEDS: Apixaban 5 MG TAB PO SCH ×2 (08:35→21:19)
[2017-01-05] MEDS: Furosemide 40 MG TAB PO SCH (08:35)
[2017-01-05] MEDS: Pregabalin 25 MG CAP PO SCH ×3 (08:36→21:19)
[2017-01-05] MEDS: Pregabalin 50 MG CAP PO SCH ×3 (08:36→21:21)
[2017-01-06] MEDS: Acetaminophen 325 MG TAB PO PRN ×2 (03:42→18:18)
[2017-01-06] MEDS ORDERED: Guaifenesin DM 100-10/5 ML UDCUP PO PRN (08:27)
[2017-01-06] MEDS: Furosemide 40 MG TAB PO SCH (08:59)
[2017-01-06] MEDS: Potassium Chloride 10 MEQ TAB PO SCH (09:00)
[2017-01-06] MEDS: Pregabalin 25 MG CAP PO SCH ×3 (09:00→20:34)
[2017-01-06] MEDS: Pregabalin 50 MG CAP PO SCH ×3 (09:01→20:36)
[2017-01-06] MEDS: Aspirin 325 MG TAB PO SCH (09:02)
[2017-01-06] MEDS: Apixaban 5 MG TAB PO SCH ×2 (09:02→20:34)
--- NOTE | 2017-01-07 08:56 | PRG ---
DATE OF SERVICE: 01/07/2017 SUBJECTIVE: The patient thinks he is doing better, his breathing is better. His cough is better. He says his right foot is better. He walking fine without the walking boot. He is scheduled to see his upper leather sorter on 01/10/2017. The patient says that he is not sleeping good at night. At home he uses temazepam 15 mg at nighttime. He would like to have this ordered. He also says he needs something a little bit more for pain than just the plain Tylenol. OBJECTIVE: The patient is sitting up in his bed, alert, talkative, and appears comfortable and in n o distress. His temp is 97.4, pulse 76, respirations 18, O2 sat 94% on 2 liters, blood pressure 130 /71. His weight is stable at 222. His lungs are clear. There is some mild coarseness of the breat h sounds on expiration. No wheezes. Overall, the lungs sound better. Heart, regular rate. Right foot, the bruising on the toes is fading. There is still a little bruising over the dorsum of the f oot, but overall this is improved and the foot is not tender to light touch. ASSESSMENT: 1. Weakness and deconditioning and gait abnormality. A. Exacerbated with the acute illness and hospitalization. B. Gait stabilized with a rolling walker. C. Continued improvement as of 01/07/2017. 2. Hospitalized at [facility] from 12/20/2016 until 12/28/2016 for [id number] elevated myocardial infarction with no ischemia on stress test, medically managed, acute bronchitis , dehydration with acute on chronic kidney disease and atrial fibrillation. 3. Ischemic cardiomyopathy. A. Ejection fraction per patient 25%-30%. B. Complicated by chronic diastolic congestive failure. 1. No evidence of acute congestive heart failure as of 01/07/2017. 2. Status post AICD/pacemaker. C. Near end of life of battery of the AICD pacemaker. 4. Coronary artery disease. A. History of a aaz-KU-fjhpmpx elevated myocardial infarction, managed medically with a stress test showing no acute ischemia occurred on 12/20/2016. B. Status post CAD. 5. Chronic atrial fibrillation. A. Rate controlled. B. On chronic anticoagulation. 6. Hypertension. A. Control as of 01/07/2017. 7. Chronic kidney disease. A. Complicated by acute renal failure from dehydration that has resolved. GFR 23 as of 12/29/2016. B. GFR 22 as of 01/04/2017, it was 25 on 12/31/2016. 8. Episode of hypotension upon admission to the hospital on 12/20/2016. A. Etiology, it is felt that the patient may have missed taking medication resulting in the hypoten sive episode. B. No recurrence of hypotensive episodes as of 01/04/2017. 9. Obstructive sleep apnea. A. Use CPAP when sleeping. 10. Hypoxemia. A. Utilizes O2 when sleeping and p.r.n. 11. Acute bronchitis. A. Resolved as of 01/03/2017. 12. Suspect underlying chronic obstructive pulmonary disease. 13. Diabetes type 2. Hemoglobin A1c 5.9 and FBS 104 on no medication. 14. Peripheral neuropathy of the lower extremities. 15. Contusion to the right forefoot. 15A. Continued improvement with decrease of the swelling and fading of the bruising as of 12/17. PLAN: The patient is scheduled to see his upper leather sorter about his pacemaker AICD battery replacement on 01/10/2017. Continue physical therapy. Will order his Restoril 15 mg at bedtime as needed loss . We will order tramadol twice a day if needed.
[2017-01-07] MEDS: Aspirin 325 MG TAB PO SCH (09:06)
[2017-01-07] MEDS: Apixaban 5 MG TAB PO SCH ×2 (09:06→20:40)
[2017-01-07] MEDS: Furosemide 40 MG TAB PO SCH (09:07)
[2017-01-07] MEDS: Potassium Chloride 10 MEQ TAB PO SCH (09:09)
[2017-01-07] MEDS: Pregabalin 25 MG CAP PO SCH ×3 (09:10→20:40)
[2017-01-07] MEDS: Pregabalin 50 MG CAP PO SCH ×3 (09:11→20:39)
[2017-01-07] MEDS: traMADol HCl 50 MG TAB PO PRN (09:42)
[2017-01-07] MEDS: Acetaminophen 325 MG TAB PO PRN (15:34)
[2017-01-07] MEDS: Temazepam 15 MG CAP PO PRN (20:40)
[2017-01-08] MEDS: traMADol HCl 50 MG TAB PO PRN ×2 (00:12→11:49)
[2017-01-08] MEDS: Acetaminophen 325 MG TAB PO PRN ×3 (02:19→21:59)
[2017-01-08] MEDS: Pregabalin 25 MG CAP PO SCH ×3 (08:21→20:17)
[2017-01-08] MEDS: Pregabalin 50 MG CAP PO SCH ×3 (08:22→20:16)
[2017-01-08] MEDS: Furosemide 40 MG TAB PO SCH (08:23)
[2017-01-08] MEDS: Potassium Chloride 10 MEQ TAB PO SCH (08:23)
[2017-01-08] MEDS: Aspirin 325 MG TAB PO SCH (08:23)
[2017-01-08] MEDS: Apixaban 5 MG TAB PO SCH ×2 (08:23→20:17)
[2017-01-08] MEDS: Temazepam 15 MG CAP PO PRN (21:59)
[2017-01-09] MEDS: traMADol HCl 50 MG TAB PO PRN ×3 (05:38→18:43)
[2017-01-09 06:17] LABS: #Basophils 0.2 thou/uL (0.0-0.2); #Eosinphils 0.4 thou/uL (0.0-0.7); #Lymphocytes 1.3 thou/uL (1.20-3.40); #Monocytes 1.1 thou/uL (0.11-0.59); #Neutrophils 6.4 thou/uL (1.40-6.50); %Basophils 1.9 % (0.0-1.0); %Lymphocytes 13.5 % (21.0-51.0); %Monocytes 12.1 % (0.0-10.0); %Neutrophils 68.5 % (42.0-75.0); Hemoglobin 12.6 g/dL (14.0-18.0); Mean Corpuscular HGB CONC 31.6 g/dL (32.0-36.0); Mean Corpuscular Hemoglobin 29.9 pg (27.0-31.0); Mean Corpuscular Volume 94.6 fl (80.0-94.0); Mean Platelet Volume 9.6 fL (7.4-10.4); Platelet Count 274 thou/uL (130-400); RBC Distribution Width 14.3 % (11.5-14.5); Red Blood Cell (RBC) Count 4.22 mill/uL (4.70-6.10); White Blood Cell (WBC) Count 9.4 thou/uL (4.8-10.8)
[2017-01-09 06:30] LABS: Anion Gap 14 mmol/L (10-20); BUN (Urea Nitrogen) 31 mg/dL (8.4-25.7); Calc. Creatinine Clearance 54 mL/min (70-130); Calcium 10.3 mg/dL (7.8-10.44); Carbon Dioxide 33 mmol/L (23-31); Chloride 94 mmol/L (98-107); Estimated GFR-MDRD 46; Glucose 173 mg/dL (83-110); Potassium 4.2 mmol/L (3.5-5.1); Sodium 137 mmol/L (136-145)
[2017-01-09] MEDS: Apixaban 5 MG TAB PO SCH ×2 (08:36→20:46)
[2017-01-09] MEDS: Aspirin 325 MG TAB PO SCH (08:36)
[2017-01-09] MEDS: Potassium Chloride 10 MEQ TAB PO SCH (08:37)
[2017-01-09] MEDS: Pregabalin 25 MG CAP PO SCH ×3 (08:37→20:46)
[2017-01-09] MEDS: Pregabalin 50 MG CAP PO SCH ×3 (08:38→20:48)
--- NOTE | 2017-01-09 10:15 | PRG ---
DATE OF SERVICE: 01/09/2017 SUBJECTIVE: The patient said he is doing better. He is sleeping better with the use the temazepam which he uses at home. The patient said the tramadol does help him, but he would like to have more often if needed. He is doing well with his therapy. His foot is doing better. Cough is doing fine . OBJECTIVE: The patient is sitting up on the edge of the bed. He is alert, talkative, and appears v rolf comfortable and in no distress. His temperature is 96.2, pulse 84, respirations 18, O2 saturati on 98% on 2 liters, blood pressure 115/89. His lungs are clear. Heart, regular rate. Extremities; there is only trace edema in the right foot and bruising continues to decline. Lab shows an H\T\H of 12.6 and 39.9, WBC count 9400 with 69% segs, 14% lymphocytes, and a platelet c ount of 274,000. Sodium 137, potassium 4.2, BUN down to 31, creatinine 1.47, GFR is up to 46. FBS 173. ASSESSMENT: 1. Weakness and deconditioning and gait abnormality. A. Exacerbated with the acute illness and hospitalization. B. Gait stabilized with a rolling walker. C. Continued improvement as of 01/09/2017. 2. Hospitalized at [facility] from 12/20/2016 until 12/28/2016 for [id number] elevated myocardial infarction with no ischemia on stress test, medically managed, acute bronchitis , dehydration with acute on chronic kidney disease and atrial fibrillation. 3. Ischemic cardiomyopathy. A. Ejection fraction per patient 25%-30%. B. Complicated by chronic diastolic congestive failure. 1. No evidence of acute congestive heart failure as of 01/09/2017. 2. Status post AICD/pacemaker. C. Near end of life of battery of the AICD pacemaker. 4. Coronary artery disease. A. History of a [id number]-DU-szsdiih elevated myocardial infarction, managed medically with a stress test showing no acute ischemia occurred on 12/20/2016. B. Status post CAD. 5. Chronic atrial fibrillation. A. Rate controlled. B. On chronic anticoagulation. 6. Hypertension. A. Control as of 01/09/2017. 7. Chronic kidney disease. A. Complicated by acute renal failure from dehydration that has resolved. GFR 23 as of 12/29/2016. B. GFR 22 as of 01/04/2017, it was 25 on 12/31/2016. Improved with a GFR up to 46 as of 01/09/2017. 8. Episode of hypotension upon admission to the hospital on 12/20/2016. A. Etiology, it is felt that the patient may have missed taking medication resulting in the hypoten sive episode. B. No recurrence of hypotensive episodes as of 01/09/2017. 9. Obstructive sleep apnea. A. Use CPAP when sleeping. 10. Hypoxemia. A. Utilizes O2 when sleeping and p.r.n. 11. Acute bronchitis. A. Resolved as of 01/03/2017. 12. Suspect underlying chronic obstructive pulmonary disease. 13. Diabetes type 2. Hemoglobin A1c 5.9 and FBS 104 on no medication. 14. Peripheral neuropathy of the lower extremities. 15. Contusion to the right forefoot. A. Continued improvement with decrease of the swelling and fading of the bruising as of 2016. 16. Insomnia. A. Controlled. 17. Chronic low back pain secondary to spondylosis. PLAN: Continue present care. Continue physical therapy. Will increase the tramadol 1 every 6 hour s if needed. The patients weight remains stable at 222.
[2017-01-09] MEDS: Temazepam 15 MG CAP PO PRN (20:49)
[2017-01-10] MEDS: traMADol HCl 50 MG TAB PO PRN ×2 (05:38→19:37)
[2017-01-10 07:58] VITALS: BMI 30.5
[2017-01-10] MEDS: Pregabalin 50 MG CAP PO SCH ×3 (08:49→20:36)
[2017-01-10] MEDS: Furosemide 40 MG TAB PO SCH (08:50)
[2017-01-10] MEDS: Apixaban 5 MG TAB PO SCH ×2 (08:51→20:35)
[2017-01-10] MEDS: Potassium Chloride 10 MEQ TAB PO SCH (08:51)
[2017-01-10] MEDS: Aspirin 325 MG TAB PO SCH (08:52)
[2017-01-10] MEDS: Pregabalin 25 MG CAP PO SCH ×3 (08:52→20:36)
[2017-01-10] MEDS: Temazepam 15 MG CAP PO PRN (20:35)
[2017-01-11] MEDS: Pregabalin 50 MG CAP PO SCH ×2 (08:16→14:24)
[2017-01-11] MEDS: traMADol HCl 50 MG TAB PO PRN (08:17)
[2017-01-11] MEDS: Pregabalin 25 MG CAP PO SCH ×2 (08:17→14:23)
[2017-01-11] MEDS: Furosemide 40 MG TAB PO SCH (08:27)
[2017-01-11] MEDS: Apixaban 5 MG TAB PO SCH (08:27)
[2017-01-11] MEDS: Aspirin 325 MG TAB PO SCH (08:27)
[2017-01-11] MEDS: Potassium Chloride 10 MEQ TAB PO SCH (08:28)
[2017-01-11 09:24] VITALS: BP 124/81; TEMP 95.2
--- NOTE | 2017-01-11 12:08 | DIS ---
FINAL DIAGNOSES: 1. Weakness and deconditioning and gait abnormality. A. Secondary to acute illness and hospitalization for non-ST segment elevated CT and bronchitis and renal failure. B. Gait stabilized with rolling walker, much improved. C. Overall weakness, deconditioning, and gait abnormality improved as of 01/11/2017. 2. Hospitalized at [facility] from 12/20/2016 until 12/28/2016 for jri-NS-[id number] elevated myocardial infarction with no ischemia on stress test, medically managed, acute bronchi tis, dehydration with acute on chronic kidney disease and atrial fibrillation. 3. Ischemic cardiomyopathy. A. Ejection fraction per patient 25%-30%. B. Complicated by chronic diastolic congestive failure. 1. No evidence of acute congestive heart failure as of 01/11/2017. 2. Status post AICD/pacemaker. C. Near end of life of battery of the AICD pacemaker. Due for replacement on 01/17/2017. 4. Coronary artery disease. A. History of a txz-ME-[id number] elevated myocardial infarction, managed medically with a stress test showing no acute ischemia occurred on 12/20/2016. B. Status post CAD. 5. Chronic atrial fibrillation. A. Rate controlled. B. On chronic anticoagulation. 6. Hypertension. A. Control as of 01/11/2017. 7. Chronic kidney disease. A. Complicated by acute renal failure from dehydration that has resolved. GFR 23 as of 017. B. GFR 22 as of 01/04/2017, it was 25 on 12/31/2016. Improved with a GFR up to 46 as of 017. 8. Episode of hypotension upon admission to the hospital on 12/20/2016. A. Etiology, it is felt that the patient may have missed taking medication resulting in the hyp otensive episode. B. No recurrence of hypotensive episodes as of 01/09/2017. 9. Obstructive sleep apnea. A. Use CPAP when sleeping. 10. Hypoxemia. A. Utilizes O2 when sleeping and p.r.n. 11. Acute bronchitis. A. Resolved as of 01/03/2017. 12. Suspect underlying chronic obstructive pulmonary disease. 13. Diabetes type 2. Hemoglobin A1c 5.9 and FBS 104 on no medication. 14. Peripheral neuropathy of the lower extremities. 15. Contusion to the right forefoot. A. Continued improvement with decrease of the swelling and fading of the bruising as of 017. 16. Insomnia. A. Controlled. 17. Chronic low back pain secondary to spondylosis. SUMMARY: The patient is an 81-year-old white male who lives at home with his who assists him w ith his ADLs and his instrumental ADLs. He has a history of ischemic cardiomyopathy with an ejectio n fraction of 25-30% and a history of chronic diastolic congestive heart failure. He also has diabe florinda, atrial fibrillation for which he is on chronic anticoagulation, hypertension, and chronic renal disease. The patient is cared for also by home health. The patient was hospitalized in [facility] from 12/20/2016 until 12/28/2016 for non-ST segment elevated CT. Stress test was done following this, which showed no ischemia on test. He was treated medically. He also develope d an acute bronchitis, dehydration with acute on chronic kidney disease and for his atrial fibrillat ion. He was left extremely weak, had difficulty ambulating with the use of his walker. He also had continued trouble with bronchitis, and a history suggestive of COPD. He had also injured his right foot and had no fractures, but had swelling and bruising of the forefoot dorsally. This was manage d with elevation and a walking boot. The patient was referred to [facility] for extended care for continued treatment of the bronchitis and for his severe weakness and deconditioning and gait a bnormality. HOSPITAL COURSE: During the patient's hospitalization, he was treated with nebulization treatments with DuoNeb for his acute bronchitis. His chest x-ray done on 12/28/2016 showed no acute pulmonary findings. He does have severe cardiomegaly without acute congestive failure and it shows that he gonsalez s implantable cardio converter defibrillator. The patient's bronchitis gradually resolved as did th e rhonchi and wheezes. His swelling and bruising of the right foot gradually improved, swelling mar kedly diminished and the bruising was fading, but not resolved by the time of his discharge. The pa in in the foot was markedly improved and he was able to stop using the walking boot and he was able to get back in his shoes and socks. The patient's diabetes was monitored with fasting blood sugars, most of these were less than 120, occasionally dependent upon diet these will be up to 170. His he moglobin A1c was 5.9 on admission, his FBS was 104. Over the next few days fasting glucoses were 92 , 112, 121, 65, 108, 127. The patient has chronic kidney disease and on admission his BUN was 67, creatinine 2.67 with a GFR of 23 and potassium of 4. During the patient's admission his BUN dropped to 31 and creatinine to 1.4 and GFR improved to 4.6. These could have been a lab error or mix up b ecause these were so different from his baseline when nothing had been changed and the FBS was up to 173. We will do a follow up on these at home and see where he is. His chronic renal failure stage IV was stable throughout the admission and his diabetes was stable with good FBS with no treatments. The patient had no episodes of acute congestive heart failure during his hospitalization. He does have an ischemic cardiomyopathy and a very enlarged heart. He is on fluid restriction. His weight was 226 on admission, it dropped to 222 and at discharge was 225. His battery life on his pacemake r defibrillator is about out. He did see his crystal growing technician on 01/10/2017 and he is scheduled to have a battery replacement in [place] on 01/17/2017. The patient made excellent progress with his ph ysical therapy while hospitalized and was walking up to 200 feet twice a day. He was able to transf er with only standby assistance. He was using a rolling walker and no longer was needing his walkin g boot on the right foot. By 01/11/2017, his condition improved such that he felt that he and his w gorge could manage fine at home with the assistance from home health. The patient was discharged on . DIET: Regular diet. No added salt, mechanical soft and fluid restriction of less than 2000 mL per day. ACTIVITIES: Ambulate with the use of a walker with wheels. Home health will continue to assist him at home with nursing and with physical therapy and occupational therapy. MEDICATIONS: O2 at 2 liters by nasal cannula, continuous CPAP when sleeping, acetaminophen 325 mg 2 every 4 hours as needed, Eliquis 2.5 mg b.i.d., aspirin 325 mg daily, Cymbalta 60 mg daily, furosem alicia 60 mg daily, DuoNeb by nebulizer b.i.d. and q.4h. as needed, metoprolol succinate 100 mg b.i.d., pantoprazole 40 mg daily, KCl 10 mEq daily, Lyrica 75 mg b.i.d., temazepam 15 mg at bedtime as need ed, tramadol 50 mg b.i.d. as needed. FOLLOW UP: Home health will see patient and arrange for in-home physical therapy and occupational t herapy. The patient due to recent return to see his crystal growing technician for a battery replacement on his p acemaker ICD on 01/17/2017. We will see the patient in followup in my office in 2 weeks. Prior to that visit, he will need a CBC and basic metabolic panel. CODE STATUS: DNR.
== END 2017-01-11 15:15 | disposition home health service (06) | DRG 682 ==
LOC: MADMS 16:22
PROVIDERS: ADMIT Family Medicine; ATTEND Family Medicine
DX: N17.9 Acute kidney failure, unspecified (principal); I21.4 Non-ST elevation (NSTEMI) myocardial infarction; G62.9 Polyneuropathy, unspecified; I13.0 Hypertensive heart and chronic kidney disease with heart failure and stage 1 through stage 4 chronic kidney disease, or unspecified chronic kidney disease; E86.0 Dehydration; I50.32 Chronic diastolic (congestive) heart failure; E11.9 Type 2 diabetes mellitus without complications; I48.2 Chronic atrial fibrillation; G47.33 Obstructive sleep apnea (adult) (pediatric); G89.29 Other chronic pain; J20.9 Acute bronchitis, unspecified; N18.3 Chronic kidney disease, stage 3 (moderate); I25.10 Atherosclerotic heart disease of native coronary artery without angina pectoris; M47.9 Spondylosis, unspecified; I25.5 Ischemic cardiomyopathy; S90.31XA Contusion of right foot, initial encounter; R26.9 Unspecified abnormalities of gait and mobility; Z66 Do not resuscitate; Z95.1 Presence of aortocoronary bypass graft; Z95.810 Presence of automatic (implantable) cardiac defibrillator; Z79.01 Long term (current) use of anticoagulants; X58.XXXA Exposure to other specified factors, initial encounter
CPT/HCPCS: 36415; 36416; 71010; 80048; 80053; 80061; 83036; 84443; 85025; 93005; 93010; G8978-GP-CK; G8979-GP-CI; J7620

== ENCOUNTER 2017-01-17 12:50 | Emergency (ER) | payer MEDICARE ==
[~2017-01-17 12:50] MED LIST: Sodium Chloride Irrig Solution 250 ML BOT ONE
[2017-01-17 13:47] LABS: #Basophils 0.1 thou/uL (0.0-0.2); #Eosinphils 0.1 thou/uL (0.0-0.7); #Lymphocytes 0.8 thou/uL (1.20-3.40); #Monocytes 0.5 thou/uL (0.11-0.59); %Basophils 1.9 % (0.0-1.0); %Eosinophils 1.9 % (0.0-10.0); %Lymphocytes 16.9 % (21.0-51.0); %Monocytes 12.1 % (0.0-10.0); %Neutrophils 67.2 % (42.0-75.0); Hemoglobin 12.8 g/dL (14.0-18.0); Mean Corpuscular Hemoglobin 31.2 pg (27.0-31.0); Mean Corpuscular Volume 100.6 fl (80.0-94.0); Mean Platelet Volume 9.6 fL (7.4-10.4); Platelet Count 80 thou/uL (130-400); RBC Distribution Width 15.8 % (11.5-14.5); White Blood Cell (WBC) Count 4.5 thou/uL (4.8-10.8)
[2017-01-17 13:49] LABS: Anisocytosis SLIGHT = 6-15 cells (100X) (0-5/hpf); Elliptocytes SLIGHT = 2-5 cells (100X) (0-1/hpf); MDiff Complete? YES; Macrocytosis SLIGHT = 6-15 cells (100X) (0-5/hpf); Poikilocytosis SLIGHT = 6-15 cells (100X) (0-5/hpf); Target Cells SLIGHT = 2-5 cells (100X) (0-1/hpf); Tear Drops SLIGHT = 2-5 cells (100X) (0-1/hpf)
[2017-01-17 13:50] LABS: ALT (SGPT) 13 U/L (8-55); AST (SGOT) 16 U/L (5-34); Albumin 3.6 g/dL (3.4-4.8); Alkaline Phosphatase 76 U/L (40-150); Anion Gap 21 mmol/L (10-20); BUN (Urea Nitrogen) 54 mg/dL (8.4-25.7); Calc. Creatinine Clearance 0 mL/min (70-130); Calcium 9.1 mg/dL (7.8-10.44); Carbon Dioxide 18 mmol/L (23-31); Chloride 109 mmol/L (98-107); Estimated GFR-MDRD 20; Globulin 2.5 g/dL (2.4-3.5); Glucose 118 mg/dL (83-110); Magnesium 2.5 mg/dL (1.6-2.6); PLT Morphology Comment PLTS ARE DECREASED O; Potassium 4.5 mmol/L (3.5-5.1); Protein, Total 6.1 g/dL (5.8-8.1); Sodium 143 mmol/L (136-145)
--- NOTE | 2017-01-17 14:08 | RAD ---
CHEST ONE VIEW: HISTORY: Weakness. Dyspnea. COMPARISON: 12/28/2016 FINDINGS: Cardiac silhouette remains markedly enlarged. Pulmonary vasculature is unremarkable. Mediastinum i s midline with postoperative changes, aortic calcification, and a multi-lead left subclavian cardiac electronic device. No lobar consolidation or pneumothorax are evident. IMPRESSION: Cardiomegaly and other chronic-type findings are stable. POS: [facility]
[2017-01-17 14:12] LABS: CKMB 1.6 ng/mL (0-6.6); Troponin I 0.028 ng/mL (< 0.028)
[2017-01-17 14:21] LABS: Bilirubin, Total 1.3 mg/dL (0.2-1.2)
[2017-01-17] MEDS ORDERED: Furosemide 20 MG/2 ML VIAL ONE (15:05)
[2017-01-17] MEDS ORDERED: Furosemide 40 MG/4 ML VIAL ONE (15:05)
[2017-01-17] MEDS ORDERED: Cephalexin 500 MG CAP ONE (17:33)
[2017-01-17] MEDS ORDERED: Metoprolol Tartrate 50 MG TAB ONE (17:33)
== END 2017-01-17 18:15 | disposition short-term general hospital (02) ==
LOC: MADERS 12:50
DX: E87.70 Fluid overload, unspecified (principal); E87.2 Acidosis; I13.0 Hypertensive heart and chronic kidney disease with heart failure and stage 1 through stage 4 chronic kidney disease, or unspecified chronic kidney disease; I50.9 Heart failure, unspecified; N18.9 Chronic kidney disease, unspecified; I25.10 Atherosclerotic heart disease of native coronary artery without angina pectoris; I25.2 Old myocardial infarction; J44.9 Chronic obstructive pulmonary disease, unspecified; I48.91 Unspecified atrial fibrillation; Z79.01 Long term (current) use of anticoagulants; Z86.73 Personal history of transient ischemic attack (TIA), and cerebral infarction without residual deficits; Z79.82 Long term (current) use of aspirin; Z79.899 Other long term (current) drug therapy
CPT/HCPCS: 36415; 71010; 80053; 82553; 83735; 83880; 84443; 84484; 85025; 93005; 96374; J1940

== ENCOUNTER 2017-01-22 16:47 | Inpatient (IN) | payer MEDICARE ==
[2017-01-22] MEDS ORDERED: Ondansetron ODT 4 MG TAB PO PRN (21:33)
[2017-01-22] MEDS ORDERED: cloNIDine 0.1 MG TAB PO PRN (21:34)
[2017-01-22] MEDS ORDERED: Temazepam 15 MG CAP PO PRN (21:39)
[2017-01-22] MEDS ORDERED: Pregabalin 25 MG CAP PO SCH (22:45)
[2017-01-22] MEDS: Melatonin 3 MG TAB PO PRN (23:27)
[2017-01-23] MEDS: Pregabalin 50 MG CAP PO SCH ×3 (08:19→20:43)
[2017-01-23] MEDS: Acetaminophen 325 MG TAB PO PRN (08:20)
[2017-01-23] MEDS: Furosemide 20 MG TAB PO SCH (08:20)
[2017-01-23] MEDS: Aspirin 81 mg Enteric Coated Tablet PO SCH (08:21)
[2017-01-23] MEDS: Potassium Chloride 10 MEQ TAB PO SCH (08:21)
[2017-01-23] MEDS: Pregabalin 25 MG CAP PO SCH ×3 (08:21→20:43)
[2017-01-23] MEDS ORDERED: Apixaban 5 MG TAB PO SCH (09:00)
[2017-01-23] MEDS ORDERED: Pregabalin 25 MG CAP PO SCH (09:00)
[2017-01-23 09:12] LABS: Anion Gap 21 mmol/L (10-20); BUN (Urea Nitrogen) 46 mg/dL (8.4-25.7); Calc. Creatinine Clearance 31 mL/min (70-130); Carbon Dioxide 18 mmol/L (23-31); Chloride 113 mmol/L (98-107); Estimated GFR-MDRD 23; Glucose 139 mg/dL (83-110); Potassium 4.7 mmol/L (3.5-5.1); Sodium 147 mmol/L (136-145)
--- NOTE | 2017-01-23 09:52 | RAD ---
SINGLE VIEW OF THE CHEST: Comparison: 01-17-17 History: Congestive heart failure. FINDINGS: Single view of the chest shows an enlarged but stable cardiomediastinal silhouette. The patient is s tatus post sternotomy. The pacemaker is unchanged in position. There is an opacity in the inferior l eft thorax which may represent a small left pleural effusion. IMPRESSION: 1. Cardiomegaly. 2. Possible small left pleural effusion. POS: [facility]
[2017-01-23 10:43] LABS: Hemoglobin 12.8 g/dL (14.0-18.0); Red Blood Cell (RBC) Count 4.13 mill/uL (4.70-6.10); White Blood Cell (WBC) Count 5.8 thou/uL (4.8-10.8)
[2017-01-23 10:44] LABS: Mean Corpuscular HGB CONC 30.9 g/dL (32.0-36.0); Mean Corpuscular Hemoglobin 31.1 pg (27.0-31.0); RBC Distribution Width 16.5 % (11.5-14.5)
[2017-01-23 10:45] LABS: Lymphocytes 20 % (21-51); MDiff Complete? YES; Manual Diff?? YES; Monocytes 3 % (0-10); Neutrophil 77 % (42-75)
[2017-01-23 10:46] LABS: Anisocytosis SLIGHT = 6-15 cells (100X) (0-5/hpf); PLT Morphology Comment Appears Decreased
[2017-01-23 10:47] LABS: Platelet Count 63 thou/uL (130-400)
[2017-01-23 10:48] LABS: Poikilocytosis SLIGHT = 6-15 cells (100X) (0-5/hpf)
--- NOTE | 2017-01-23 12:03 | HP ---
DATE OF ADMISSION: Admitted to [facility] late on the evening of 01/22/2017 CHIEF COMPLAINT: Severe weakness. PRESENT ILLNESS: The patient is an 81-year-old white male who had been living at home with his who assisted him with all his ADLs and instrumental ADLs. He has a history of an ischemic cardiomy opathy with an ejection fraction of 25-30% with a history of chronic diastolic congestive heart fail ure. He also has atrial fibrillation and has been on long-term anticoagulation with Eliquis, he has hypertension, stage 4 chronic kidney disease, severe low back pain secondary to spondylosis and pro bable underlying chronic obstructive pulmonary disease. He has obstructive sleep apnea for which he is on CPAP. The patient had been hospitalized at [facility] from 12/20/2016 unti l 12/28/2016 for a non-ST segment elevated myocardial infarction that was medically managed. He als o had acute bronchitis and dehydration with acute on chronic kidney failure. The patient was left e xtremely weak and was transferred to [facility] for extended care from 12/28/2016 until 2016. During that hospitalization his severe weakness and deconditioning from the recent non-ST seg ment elevated CT and bronchitis gradually improved. He had no evidence of any failure during the ho spitalization. His chronic kidney disease stabilized with a GFR on discharge of 46. The patient wa s discharged home with his primary caregiver, his , along with home health. The patient's condition at home gradually deteriorated where he became weaker, developed increasing swelling in his legs and then had several falls. He represented to the emergency room because of th e increased weakness, swelling, and shortness of breath and was admitted at [facility] from 01/17/2017 until 01/22/2007 for acute on chronic systolic congestive heart failure, chronic kidney disease, recurrent falls. During that hospitalization, he was diuresed, his breathing improved. He still had persists a lot of peripheral edema, but breathing improved. Repeat echocardiogram showed no difference, he still had the ejection fraction of 20-25%. The left atrium was moderately to sev erely dilated and there was also enlargement of the right atrium. There was akinetic motion inferio r wall of the left ventricle and the left ventricle size was increased. He had moderate mitral regu rgitation and severe tricuspid regurgitation. The patient was left extremely weak and because of th e falls, multiple bruising, it was felt that his Eliquis that he was on for the atrial fib presented more of a risk and was stopped. The patient was discharged to [facility] and arrived here l ate on the evening of 01/22/2017. The patient was just restarted on his routine medication. The patient was seen early on the morning of 01/23/2017. He said that he had gotten very weak at [facility], he had fallen and he just does not feel good. He said he has been very weak and has had a lot o f low back pain which is chronic. The discharge summary, history and physical and echocardiogram wa s reviewed from this recent hospitalization and a previous history and physical and discharge summar y. PAST HISTORY: Hospitalized at [facility] from 01/17/2017 to 01/22/2017 for acute on chroni c systolic congestive heart failure and frequent falls. His Eliquis was stopped. Hospitalized at [facility] from 12/28/2016 to 01/11/2017 for weakness, deconditioning, and gait abnormality. A cute bronchitis and has chronic kidney disease. Hospitalized at [facility] from until 12/28/[address] segment elevated CT, medically managed and acute [facility]. The patient has an ischemic cardiomyopathy with an ejection fraction of 20-25%. Complicated by chronic systolic/diastolic congestive heart failure. He has an AICD. Hypertension, hyperlipide wu, obstructive sleep apnea for which he is on CPAP and oxygen at nighttime. The patient has had a left cerebellar stroke years ago that left him with no impairment. The patient has a history of di abetes, but recently blood sugars have been normal. He is on no medication. He has coronary artery disease, has had a coronary artery bypass, AICD pacemaker placement. He has also had abdominal aor tic aneurysm resection. The patient has COPD and also stage 4 chronic kidney disease. The patient also has peripheral neuropathy. PRESENT MEDICATIONS: Pepcid 20 mg b.i.d., Lasix 60 mg daily, DuoNeb by nebulizer b.i.d. and q.4h. a s needed, melatonin 3 mg at bedtime as needed, metoprolol extended release 100 mg b.i.d., Zofran 4 m g oral disintegrating tablets every 6 hours as needed, Klor-Con 10 mEq daily, Lyrica 75 mg t.i.d., R estoril 15 mg at bedtime as needed, tramadol 50 mg b.i.d. as needed for pain, clonidine 0.1 mg q.4h. p.r.n. blood pressure greater than 180, aspirin 81 mg daily. The patient had been on Eliquis 2.5 m g b.i.d. which was stopped due to fall risk. Also, the patient has been on Cymbalta 60 mg daily, an d Tylenol 325 mg 2 every 4 hours as needed. ALLERGIES: No known allergies. REVIEW OF SYSTEMS: The patient presently is just uncomfortable and a little sleepy and could not ve ry easily go through review of systems. He just said he was hurting in his low back. The patient s aid he is weak and has only been able to walk very little bit. HABITS: Alcohol none. Tobacco none. SOCIAL HISTORY: The patient lives at home with his who assists him with his ADLs, but also has home health to assist. CODE STATUS: DNR. PHYSICAL EXAMINATION: GENERAL: Shows an 81-year-old white male who is lying in his bed, leaning to his left side, trying to get up complaining that his back hurts. He is a little lethargic. VITAL SIGNS: Shows a temperature 98.1, pulse 79, respirations 22, O2 sat 95% on 2 liters, blood pre ssure 158/90. His weight is 229. HEAD: Normocephalic. EYES: Pupils are equal, round, and reactive. Sclerae nonicteric. EARS: There is some cerumen obscuring the TMs. NOSE: Normal. MOUTH AND THROAT: The patient has a broken lower canine tooth on the left. There is some dried blo od in his mouth, it looks like a small cut on the mucosal surface of the right lower lip. There is no active bleeding. NECK: Carotids have a regular rate. There are no bruits. Thyroid not enlarged. LUNGS: Clear. HEART: Regular rate. ABDOMEN: Obese. There is no organomegaly. EXTREMITIES: The patient has generalized edema in his arms and 2+ in his legs. The toes are cyanot ic. NEUROLOGIC: The patient is lethargic. He knows that he is in the hospital, but has extreme general ized weakness. IMPRESSION: 1. Severe weakness and deconditioning. A. Secondary to recent multiple hospitalizations. His ischemic cardiomyopathy with recent acute epi sodes of congestive failure and his chronic low back pain. 2. Recent multiple hospitalizations. A. [facility] from 12/20/2016-12/28/2016 for a non-ST segment elevated myocardial infarcti on and acute bronchitis. B. [facility] from 12/28/2016 to 01/11/2017 for severe weakness and deconditioning and acute bronchitis. C. [facility] from 01/17/2017 until 01/22/2017 for acute on chronic systol ic congestive heart failure. 3. Ischemic cardiomyopathy. A. Ejection fraction 20-25% with severe dilation of the left atrium and right atrium and akinetic mo tion of the inferior left ventricle and enlargement of the left ventricle with severe tricuspid regu rgitation and moderate mitral regurgitation on 01/18/2017. B. Complicated by chronic diastolic and systolic congestive heart failure. C. Status post AICD/pacemaker. C1. Patient was due for a battery replacement on 01/17/2017, but not able be done due to his hospit alization for acute congestive heart failure. 4. Coronary artery disease. A. Status post CAB. B. Complicated by ischemic cardiomyopathy. C. History of non-ST segment elevated myocardial infarction on 12/20/2016, managed medically. 5. Chronic atrial fibrillation. A. Rate controlled. B. Recent anticoagulant with Eliquis stopped due to frequent falls. 6. Hypertension. 7. Stage 4 chronic kidney disease. 8. Obstructive sleep apnea. A. Uses CPAP when sleeping. 9. Chronic hypoxemia, uses O2 when sleeping and p.r.n. 10. Chronic obstructive pulmonary disease. 11. Peripheral neuropathy of the lower extremity. 12. Multiple contusions from multiple falls. 13. Chronic low back pain secondary to spondylosis. 14. Insomnia. 15. Code status: DNR. 16. Anasarca. PLAN: We will continue the furosemide and the fluid restrictions. The patient is very lethargic. We will hold his Restoril and only utilize the tramadol twice a day if needed for pain. We will uti lize the Gaymar pump for moist heat for his back. Physical Therapy will evaluate him. His overall condition has been one of continual decline over the last 6 weeks and prognosis is not good, particu larly with the comorbidities and the ischemic cardiomyopathy. See orders.
[2017-01-24 05:42] LABS: Anion Gap 16 mmol/L (10-20); BUN (Urea Nitrogen) 51 mg/dL (8.4-25.7); Calc. Creatinine Clearance 31 mL/min (70-130); Calcium 8.6 mg/dL (7.8-10.44); Carbon Dioxide 21 mmol/L (23-31); Chloride 113 mmol/L (98-107); Estimated GFR-MDRD 23; Glucose 116 mg/dL (83-110); Potassium 4.1 mmol/L (3.5-5.1); Sodium 146 mmol/L (136-145)
[2017-01-24] MEDS: traMADol HCl 50 MG TAB PO PRN (07:39)
[2017-01-24] MEDS: Potassium Chloride 10 MEQ TAB PO SCH (08:47)
[2017-01-24] MEDS: Aspirin 81 mg Enteric Coated Tablet PO SCH (08:48)
[2017-01-24] MEDS: Pregabalin 25 MG CAP PO SCH ×3 (08:48→20:52)
[2017-01-24] MEDS: Pregabalin 50 MG CAP PO SCH ×3 (08:49→20:53)
[2017-01-24] MEDS: Furosemide 20 MG TAB PO SCH (08:50)
[2017-01-24] MEDS ORDERED: Furosemide 20 MG TAB PO SCH (09:00)
[2017-01-24] MEDS ORDERED: Furosemide 40 MG TAB PO SCH (09:00)
--- NOTE | 2017-01-24 10:08 | PRG ---
DATE OF SERVICE: 01/24/2017 SUBJECTIVE: The patient said he slept better. He feels better today. He is on his O2. He also go t his CPAP from home and used this with O2. The patient said that he did have his AICD/ pacemaker b attery replaced on 01/17/2017 and it was later that day that he ended up having more trouble and was hospitalized at [facility]. OBJECTIVE: The patient is sitting up in bed. He is alert and talkative. The sleepiness that was a pparent yesterday has resolved, today looks much improved. His vital signs shows a temperature of 9 6.6, respirations 22, pulse in 97, blood pressure is 161/82, O2 sat 97% on 2 liters. His weight is 231. His lungs are clear. There is a little decreased breath sounds over the left lower lung. The patient has an incision that is Steri-stripped in the left upper anterior chest overlying the pacem [place]/AICD that seemed to be healing well. The patient has abrasions on the anterior knees from a fa ll, bruising on the arms and legs. There is 1+ edema in the legs. The edema in the arms and legs, though, looks better. His lab done yesterday showed an H\T\H of 12.8 and 41.6, white cell count 580 0 with 77% segs, 20% lymphocytes, platelet count 63,000. Sodium 146 today. Potassium 4.1, BUN 51, creatinine 2.67, glucose 116. His chest x-ray showed cardiomegaly, possible small left pleural effu oscar, pacemaker/AICD in the left upper chest. ASSESSMENT: 1. Severe weakness and deconditioning. A. Secondary to recent multiple hospitalizations. His ischemic cardiomyopathy with recent acute epi sodes of congestive failure and his chronic low back pain. B. Weakness a little better and lethargy resolved as of 01/24/2017. 2. Recent multiple hospitalizations. A. [facility] from 12/20/2016-12/28/2016 for a non-ST segment elevated myocardial infarcti on and acute bronchitis. B. [facility] from 12/28/2016 to 01/11/2017 for severe weakness and deconditioning and acute bronchitis. C. [facility] from 01/17/2017 until 01/22/2017 for acute on chronic systol ic congestive heart failure. 3. Ischemic cardiomyopathy. A. Ejection fraction 20-25% with severe dilation of the left atrium and right atrium and akinetic mo tion of the inferior left ventricle and enlargement of the left ventricle with severe tricuspid regu rgitation and moderate mitral regurgitation on 01/18/2017. B. Complicated by chronic diastolic and systolic congestive heart failure. C. Status post AICD/pacemaker. 1. Status post battery replacement on 01/17/2017. 4. Coronary artery disease. A. Status post CAB. B. Complicated by ischemic cardiomyopathy. C. History of non-ST segment elevated myocardial infarction on 12/20/2016, managed medically. 5. Chronic atrial fibrillation. A. Rate controlled. B. Recent anticoagulant with Eliquis stopped due to frequent falls. 6. Hypertension. 7. Stage 4 chronic kidney disease. 8. Obstructive sleep apnea. A. Uses CPAP when sleeping. 9. Chronic hypoxemia, uses O2 when sleeping and p.r.n. 10. Chronic obstructive pulmonary disease. 11. Peripheral neuropathy of the lower extremity. 12. Multiple contusions from multiple falls. 13. Chronic low back pain secondary to spondylosis. 14. Insomnia. 15. Code status: DNR. 16. Anasarca. PLAN: Overall the patient looks better than yesterday. He still looks like he has a little fluid o verload. We will increase his Lasix for a few days and then go back to the 60 only in the morning. We will add 40 mg in the afternoon. Physical therapy will be working with the patient and fall pre cautions taken.
[2017-01-24] MEDS: Furosemide 40 MG TAB PO SCH (20:52)
[2017-01-25 05:56] LABS: Anion Gap 16 mmol/L (10-20); BUN (Urea Nitrogen) 52 mg/dL (8.4-25.7); Calc. Creatinine Clearance 31 mL/min (70-130); Calcium 8.8 mg/dL (7.8-10.44); Carbon Dioxide 23 mmol/L (23-31); Chloride 111 mmol/L (98-107); Estimated GFR-MDRD 23; Glucose 116 mg/dL (83-110); Potassium 3.8 mmol/L (3.5-5.1); Sodium 146 mmol/L (136-145)
[2017-01-25 05:58] LABS: %Basophils 1.6 % (0.0-1.0); %Eosinophils 4.3 % (0.0-10.0); %Lymphocytes 18.4 % (21.0-51.0); %Monocytes 14.8 % (0.0-10.0); %Neutrophils 60.9 % (42.0-75.0); Hemoglobin 12.2 g/dL (14.0-18.0); Mean Corpuscular HGB CONC 31.6 g/dL (32.0-36.0); Mean Corpuscular Hemoglobin 31.3 pg (27.0-31.0); Mean Corpuscular Volume 99.1 fl (80.0-94.0); Mean Platelet Volume 11.2 fL (7.4-10.4); Platelet Count 41 thou/uL (130-400); RBC Distribution Width 16.2 % (11.5-14.5); Red Blood Cell (RBC) Count 3.89 mill/uL (4.70-6.10); White Blood Cell (WBC) Count 5.4 thou/uL (4.8-10.8)
[2017-01-25 05:59] LABS: #Basophils 0.1 thou/uL (0.0-0.2); #Eosinphils 0.2 thou/uL (0.0-0.7); #Monocytes 0.8 thou/uL (0.11-0.59); #Neutrophils 3.3 thou/uL (1.40-6.50); Anisocytosis SLIGHT = 6-15 cells (100X) (0-5/hpf); MDiff Complete? YES; Macrocytosis SLIGHT = 6-15 cells (100X) (0-5/hpf); Ovalocytes SLIGHT = 2-5 cells (100X) (0-1/hpf); Poikilocytosis SLIGHT = 6-15 cells (100X) (0-5/hpf)
[2017-01-25 06:00] LABS: Giant Platelets SLIGHT; PLT Morphology Comment Appears Decreased; RBC Morphology ABNORMAL
[2017-01-25] MEDS: Aspirin 81 mg Enteric Coated Tablet PO SCH (08:48)
[2017-01-25] MEDS: Potassium Chloride 10 MEQ TAB PO SCH (08:48)
[2017-01-25] MEDS: Furosemide 20 MG TAB PO SCH (08:49)
[2017-01-25] MEDS: Pregabalin 25 MG CAP PO SCH ×3 (08:49→20:52)
[2017-01-25] MEDS: Pregabalin 50 MG CAP PO SCH ×3 (08:54→20:53)
--- NOTE | 2017-01-25 11:05 | PRG ---
DATE OF SERVICE: 01/25/2017 SUBJECTIVE: The patient said he is feeling better today. He slept good last night. He did work [facility] physical therapy and yesterday walked up to 150 feet and was able to transfer with just some mini mal assistance. OBJECTIVE: The patient is sitting up in bed. He looks much better, alert, talkative. Temperature 97.6, pulse 81, respirations 18, O2 sat 100% on 2 liters, blood pressure 137/90. The weight is down to 229 from a high of 231. His lungs are clear. Heart, regular rate. Incision over the left uppe r anterior chest overlying the pacemaker/AICD is healing. The edema in the arms is better, there is beginning to be some wrinkling the skin and the edema in the lower extremities is also better, but not resolved. His H\T\H is 12.2 and 38.4, white cell count 5400 with 61% segs, 18% lymphocytes, and platelet count of 41,000. Sodium 146, potassium 3.8, BUN 52, creatinine 2.7. GFR is stable at 23, FBS 116. ASSESSMENT: 1. Severe weakness and deconditioning. A. Secondary to recent multiple hospitalizations. His ischemic cardiomyopathy with recent acute epi sodes of congestive failure and his chronic low back pain. B. Improved with ability to transfer with minimal assistance and walking up to 150 feet with his wa lker as of 01/25/2017. 2. Recent multiple hospitalizations. A. [facility] from 12/20/2016-12/28/2016 for a non-ST segment elevated myocardial infarcti on and acute bronchitis. B. [facility] from 12/28/2016 to 01/11/2017 for severe weakness and deconditioning and acute bronchitis. C. [facility] from 01/17/2017 until 01/22/2017 for acute on chronic systol ic congestive heart failure. 3. Ischemic cardiomyopathy. A. Ejection fraction 20-25% with severe dilation of the left atrium and right atrium and akinetic mo tion of the inferior left ventricle and enlargement of the left ventricle with severe tricuspid regu rgitation and moderate mitral regurgitation on 01/18/2017. B. Complicated by chronic diastolic and systolic congestive heart failure. C. Status post AICD/pacemaker. 1. Status post battery replacement on 01/17/2017. D. No evidence of acute congestive heart failure as of 01/25/2017. 4. Coronary artery disease. A. Status post CAB. B. Complicated by ischemic cardiomyopathy. C. History of non-ST segment elevated myocardial infarction on 12/20/2016, managed medically. 5. Chronic atrial fibrillation. A. Rate controlled. B. Recent anticoagulant with Eliquis stopped due to frequent falls. 6. Hypertension. 7. Stage 4 chronic kidney disease. 8. Obstructive sleep apnea. A. Uses CPAP when sleeping. 9. Chronic hypoxemia, uses O2 when sleeping and p.r.n. 10. Chronic obstructive pulmonary disease. 11. Peripheral neuropathy of the lower extremity. 12. Multiple contusions from multiple falls. 13. Chronic low back pain secondary to spondylosis. 14. Insomnia. 15. Code status: DNR. 16. Anasarca. A. Improving as of 01/25/2017. 17. Thrombocytopenia. A. Platelet count is 41,000 as of 01/25/2017. PLAN: Overall the patient looks better. We will continue the little higher dose of Lasix for a few more days and continue to observe the renal function and potassium. The added furosemide will help mobilize the generalized edema. He is improving with his strength and will continue the physical t herapy. We will monitor his platelet count.
[2017-01-25] MEDS: traMADol HCl 50 MG TAB PO PRN (15:52)
[2017-01-25] MEDS: Furosemide 40 MG TAB PO SCH (20:52)
[2017-01-26 05:44] LABS: #Basophils 0.1 thou/uL (0.0-0.2); #Eosinphils 0.3 thou/uL (0.0-0.7); #Lymphocytes 1.3 thou/uL (1.20-3.40); #Monocytes 0.8 thou/uL (0.11-0.59); #Neutrophils 3.8 thou/uL (1.40-6.50); %Basophils 1.3 % (0.0-1.0); %Eosinophils 5.8 % (0.0-10.0); %Monocytes 12.8 % (0.0-10.0); %Neutrophils 59.2 % (42.0-75.0); Hemoglobin 12.7 g/dL (14.0-18.0); Mean Corpuscular HGB CONC 31.3 g/dL (32.0-36.0); Mean Corpuscular Hemoglobin 31.2 pg (27.0-31.0); Mean Corpuscular Volume 99.7 fl (80.0-94.0); Mean Platelet Volume 10.8 fL (7.4-10.4); Platelet Count 44 thou/uL (130-400); RBC Distribution Width 16.3 % (11.5-14.5); Red Blood Cell (RBC) Count 4.04 mill/uL (4.70-6.10); White Blood Cell (WBC) Count 6.2 thou/uL (4.8-10.8)
[2017-01-26 05:45] LABS: Hypochromia SLIGHT = 6-15 cells (100X) (0-5/hpf)
[2017-01-26 05:46] LABS: Anisocytosis SLIGHT = 6-15 cells (100X) (0-5/hpf); Ovalocytes SLIGHT = 2-5 cells (100X) (0-1/hpf); PLT Morphology Comment Appears Decreased; Poikilocytosis SLIGHT = 6-15 cells (100X) (0-5/hpf); RBC Morphology ABNORMAL
[2017-01-26 05:48] LABS: Anion Gap 19 mmol/L (10-20); BUN (Urea Nitrogen) 50 mg/dL (8.4-25.7); Calc. Creatinine Clearance 33 mL/min (70-130); Calcium 8.9 mg/dL (7.8-10.44); Carbon Dioxide 22 mmol/L (23-31); Chloride 110 mmol/L (98-107); Estimated GFR-MDRD 25; Glucose 110 mg/dL (83-110); Potassium 4.1 mmol/L (3.5-5.1); Sodium 147 mmol/L (136-145)
[2017-01-26] MEDS: Pregabalin 50 MG CAP PO SCH ×3 (08:37→20:04)
[2017-01-26] MEDS: Potassium Chloride 10 MEQ TAB PO SCH (08:37)
[2017-01-26] MEDS: Furosemide 20 MG TAB PO SCH (08:38)
[2017-01-26] MEDS: Pregabalin 25 MG CAP PO SCH ×3 (08:38→20:03)
[2017-01-26] MEDS: Aspirin 81 mg Enteric Coated Tablet PO SCH (08:39)
[2017-01-26] MEDS: traMADol HCl 50 MG TAB PO PRN (11:22)
--- NOTE | 2017-01-26 11:25 | PRG ---
DATE OF SERVICE: 01/26/2017 SUBJECTIVE: The patient said that he is feeling good today. His therapy went well. He rested well last night. He is using his CPAP at night with the supplemental O2. OBJECTIVE: GENERAL: The patient is sitting up in bed, preparing to eat his breakfast. He looks very comfortab le and in no distress. Answers questions appropriately. VITAL SIGNS: Temperature this morning is 96.6, pulse 95, respirations 20, O2 saturation 97% on 2 li ters, blood pressure 139/80. His weight is 226, down from a high of 231. His urinary output was 185 0. LUNGS: Clear. There is a little decreased breath sounds at the left posterior base. HEART: Regular rate. CHEST: Incision in the left upper anterior chest overlying the pacemaker AICD is healing well. The re is no surrounding redness. EXTREMITIES: Showed that there is decreased edema. There is still edema, particularly around the e lbows and proximal forearms, left arm more than the right, and there is still 2+ edema in the feet, but these were less than yesterday. LABORATORY DATA: The labs show H and H of 12.7 and 40.1, white blood cell count 6200 with 59% segs, 21% lymphocytes, and platelet count of 44,000; yesterday, it was 41,000, and day before 63,000. Hi s sodium is 147, potassium 4.1, BUN is 50, creatinine 2.46, GFR 25, yesterday it was 23. His glucos e is 110. ASSESSMENT: 1. Severe weakness and deconditioning. A. Secondary to recent multiple hospitalizations. His ischemic cardiomyopathy with recent acut e episodes of congestive failure and his chronic low back pain. B. Improved ability to transfer with minimal assistance. Increased walking distance with the u se of a rolling walker as of 01/26/2017. 2. Recent multiple hospitalizations. A. [facility] from 12/20/2016-12/28/2016 for a non-ST segment elevated myocardial infa rction and acute bronchitis. B. [facility] from 12/28/2016 to 01/11/2017 for severe weakness and deconditioning and [place] bronchitis. C. [facility] from 01/17/2017 until 01/22/2017 for acute on chronic sy stolic congestive heart failure. 3. Ischemic cardiomyopathy. A. Ejection fraction 20-25% with severe dilation of the left atrium and right atrium and akinet ic motion of the inferior left ventricle and enlargement of the left ventricle with severe tricuspid regu rgitation and moderate mitral regurgitation on 01/18/2017. B. Complicated by chronic diastolic and systolic congestive heart failure. C. Status post AICD/pacemaker. 1. Status post battery replacement on 01/17/2017. Incision site healing as of 01/26/2017. D. No evidence of acute congestive heart failure as of 01/26/2017. 4. Coronary artery disease. A. Status post CAB. B. Complicated by ischemic cardiomyopathy. C. History of non-ST segment elevated myocardial infarction on 12/20/2016, managed medically. 5. Chronic atrial fibrillation. A. Rate controlled. B. Recent anticoagulant with Eliquis stopped due to frequent falls. 6. Hypertension. 7. Stage 4 chronic kidney disease. A. GFR 25, improved from 23 yesterday, as of 01/26/2017. 8. Obstructive sleep apnea. A. Uses CPAP when sleeping. 9. Chronic hypoxemia, uses O2 when sleeping and p.r.n. 10. Chronic obstructive pulmonary disease. 11. Peripheral neuropathy of the lower extremity. 12. Multiple contusions from multiple falls. 13. Chronic low back pain secondary to spondylosis. 14. Insomnia. 15. Code status: DNR. 16. Anasarca. A. Improved with drop in weight to 226 as of 01/26/2017. 17. Thrombocytopenia. A. Platelet count stable at 44,000 as of 01/26/2017. PLAN: Overall, patient is improving. He is gradually mobilizing more with the peripheral edema and this is gradually decreasing. His weight is dropping. His kidney function seemed to be tolerated with increased diuresis. We will continue to closely monitor that, but continue the little higher d ose of furosemide.
[2017-01-26] MEDS: Acetaminophen 325 MG TAB PO PRN (13:02)
[2017-01-26 13:24] LABS: MDiff Complete? YES
[2017-01-26] MEDS: Melatonin 3 MG TAB PO PRN (20:03)
[2017-01-26] MEDS: Furosemide 40 MG TAB PO SCH (20:05)
[2017-01-27] MEDS: traMADol HCl 50 MG TAB PO PRN (06:08)
[2017-01-27] MEDS: Pregabalin 25 MG CAP PO SCH ×3 (08:37→20:32)
[2017-01-27] MEDS: Pregabalin 50 MG CAP PO SCH ×3 (08:37→20:32)
[2017-01-27] MEDS: Furosemide 20 MG TAB PO SCH (08:38)
[2017-01-27] MEDS: Potassium Chloride 10 MEQ TAB PO SCH (08:38)
[2017-01-27] MEDS: Aspirin 81 mg Enteric Coated Tablet PO SCH (08:38)
[2017-01-27] MEDS: Acetaminophen 325 MG TAB PO PRN (11:46)
[2017-01-27] MEDS: Furosemide 40 MG TAB PO SCH (20:31)
[2017-01-28] MEDS: Potassium Chloride 10 MEQ TAB PO SCH (08:03)
[2017-01-28] MEDS: Furosemide 20 MG TAB PO SCH (08:03)
[2017-01-28] MEDS: Pregabalin 25 MG CAP PO SCH ×3 (08:04→20:28)
[2017-01-28] MEDS: Pregabalin 50 MG CAP PO SCH ×3 (08:04→20:29)
[2017-01-28] MEDS: Aspirin 81 mg Enteric Coated Tablet PO SCH (08:05)
[2017-01-28] MEDS: Furosemide 40 MG TAB PO SCH (20:28)
[2017-01-28] MEDS: traMADol HCl 50 MG TAB PO PRN (20:29)
[2017-01-29] MEDS: Pregabalin 25 MG CAP PO SCH ×3 (08:32→20:38)
[2017-01-29] MEDS: Pregabalin 50 MG CAP PO SCH ×3 (08:33→20:38)
[2017-01-29] MEDS: Aspirin 81 mg Enteric Coated Tablet PO SCH (08:34)
[2017-01-29] MEDS: Potassium Chloride 10 MEQ TAB PO SCH (08:34)
[2017-01-29] MEDS: Furosemide 20 MG TAB PO SCH (08:34)
--- NOTE | 2017-01-29 11:55 | PRG ---
DATE OF SERVICE: 01/29/2017 SUBJECTIVE: The patient said he is feeling better. He said the swelling seems to be going down and his weight is going down, he is doing better with therapy. He is not having any trouble with his b reathing. OBJECTIVE: GENERAL: The patient is sitting up in bed. He appears very comfortable and in no distress. VITAL SIGNS: His temperature is 96.3, pulse 77, respirations 18, O2 saturation 98% on 2 liters, and blood pressure 152/86. His weight is down to 219 from high of 231. LUNGS: His lungs are clear. HEART: Irregular rhythm. EXTREMITIES: Edema in the upper extremities is much improved. There are still some along the left elbow of the lower extremities are still have 1+ edema, but overall these are much less what they gonsalez d been. He has more edema chronically on the left than the right. LABORATORY DATA: His labs are pending. ASSESSMENT: 1. Severe weakness and deconditioning. A. Secondary to recent multiple hospitalizations. His ischemic cardiomyopathy with recent acut e episodes of congestive failure and his chronic low back pain. B. Improved with increasing walking with a rolling walker and increasing ease of transfer as of 01/29/2017. 2. Recent multiple hospitalizations. A. [facility] from 12/20/2016-12/28/2016 for a non-ST segment elevated myocardial infa rction and acute bronchitis. B. [facility] from 12/28/2016 to 01/11/2017 for severe weak ness and deconditioning and acute bronchitis. C. [facility] from 01/17/2017 until 01/22/2017 for acute on chronic sy stolic congestive heart failure. 3. Ischemic cardiomyopathy. A. Ejection fraction 20-25% with severe dilation of the left atrium and right atrium and akinet ic motion of the inferior left ventricle and enlargement of the left ventricle with severe tricuspid regu rgitation and moderate mitral regurgitation on 01/18/2017. B. Complicated by chronic diastolic and systolic congestive heart failure. C. Status post AICD/pacemaker. 1. Status post battery replacement on 01/17/2017. Incision site healing as of 01/26/2017. D. No evidence of acute congestive heart failure as of 01/29/2017. 4. Coronary artery disease. A. Status post CAB. B. Complicated by ischemic cardiomyopathy. C. History of non-ST segment elevated myocardial infarction on 12/20/2016, managed medically. 5. Chronic atrial fibrillation. A. Rate controlled. B. Recent anticoagulant with Eliquis stopped due to frequent falls. 6. Hypertension. 7. Stage 4 chronic kidney disease. A. GFR 25, improved from 23 yesterday, as of 01/26/2017. 8. Obstructive sleep apnea. A. Uses CPAP when sleeping. 9. Chronic hypoxemia, uses O2 when sleeping and p.r.n. 10. Chronic obstructive pulmonary disease. 11. Peripheral neuropathy of the lower extremity. 12. Multiple contusions from multiple falls. 13. Chronic low back pain secondary to spondylosis. 14. Insomnia. 15. Code status: DNR. 16. Anasarca. A. Continued improvement with gradual resolution. Weight down to 219 as of 01/29/2017. 17. Thrombocytopenia. A. Platelet count stable at 44,000 as of 01/26/2017. PLAN: Continue present care. Continue physical therapy.
[2017-01-29] MEDS: Acetaminophen 325 MG TAB PO PRN (13:32)
[2017-01-29] MEDS: traMADol HCl 50 MG TAB PO PRN (14:12)
[2017-01-29] MEDS: Furosemide 40 MG TAB PO SCH (20:37)
[2017-01-30 05:28] LABS: Anion Gap 19 mmol/L (10-20); BUN (Urea Nitrogen) 47 mg/dL (8.4-25.7); Calc. Creatinine Clearance 34 mL/min (70-130); Calcium 8.8 mg/dL (7.8-10.44); Carbon Dioxide 26 mmol/L (23-31); Chloride 104 mmol/L (98-107); Estimated GFR-MDRD 27; Glucose 117 mg/dL (83-110); Sodium 145 mmol/L (136-145)
[2017-01-30 05:39] LABS: #Basophils 0.1 thou/uL (0.0-0.2); #Eosinphils 0.3 thou/uL (0.0-0.7); #Lymphocytes 1.5 thou/uL (1.20-3.40); #Monocytes 0.5 thou/uL (0.11-0.59); #Neutrophils 3.5 thou/uL (1.40-6.50); %Basophils 1.6 % (0.0-1.0); %Eosinophils 5.6 % (0.0-10.0); %Lymphocytes 24.9 % (21.0-51.0); Anisocytosis SLIGHT = 6-15 cells (100X) (0-5/hpf); Giant Platelets SLIGHT; MDiff Complete? YES; Macrocytosis MODERATE=16-30 cells (100X) (0-5/hpf); Mean Corpuscular HGB CONC 32.4 g/dL (32.0-36.0); Mean Corpuscular Volume 98.8 fl (80.0-94.0); Mean Platelet Volume 16.5 fL (7.4-10.4); PLT Morphology Comment Appears Decreased; Platelet Count 50 thou/uL (130-400); Poikilocytosis SLIGHT = 6-15 cells (100X) (0-5/hpf); RBC Distribution Width 15.8 % (11.5-14.5); RBC Morphology Abnormal; Red Blood Cell (RBC) Count 4.06 mill/uL (4.70-6.10); White Blood Cell (WBC) Count 5.9 thou/uL (4.8-10.8)
[2017-01-30] MEDS: Furosemide 20 MG TAB PO SCH (08:20)
[2017-01-30] MEDS: Potassium Chloride 10 MEQ TAB PO SCH (08:21)
[2017-01-30] MEDS: Pregabalin 25 MG CAP PO SCH ×3 (08:21→20:34)
[2017-01-30] MEDS: Aspirin 81 mg Enteric Coated Tablet PO SCH (08:22)
[2017-01-30] MEDS: Pregabalin 50 MG CAP PO SCH ×3 (08:22→20:36)
[2017-01-30] MEDS: Furosemide 40 MG TAB PO SCH (20:33)
[2017-01-31] MEDS: Aspirin 81 mg Enteric Coated Tablet PO SCH (08:25)
[2017-01-31] MEDS: Pregabalin 50 MG CAP PO SCH ×3 (08:25→21:10)
[2017-01-31] MEDS: Furosemide 20 MG TAB PO SCH (08:25)
[2017-01-31] MEDS: Potassium Chloride 10 MEQ TAB PO SCH (08:25)
[2017-01-31] MEDS: Pregabalin 25 MG CAP PO SCH ×3 (08:26→21:08)
--- NOTE | 2017-01-31 09:42 | PRG ---
DATE OF SERVICE: 01/31/2017 SUBJECTIVE: The patient thinks he is feeling better. He says the swelling continues to improve, he is doing better with his physical therapy, walking farther. He has had no shortness of breath. OBJECTIVE: The patient is sitting up in a bedside chair. He is alert, talkative, looks very comfort able, in no distress. His temp is 97.2, pulse 86, respirations 17, O2 sat 97% on room air, blood pre ssure 134/84. His weight is 220. Lungs are clear. Heart, regular rate. Extremities: The edema in the arms is resolved except for small amount of dependent swelling in the left elbow region. The lo wer extremities still have some trace to 1+ edema, more on the left than the right. Overall improve d. ASSESSMENT: 1. Severe weakness and deconditioning. A. Secondary to recent multiple hospitalizations. His ischemic cardiomyopathy with recent acute episodes of congestive failure and his chronic low back pain. B. Continued improvement with his walking distance using a rolling walker for support. Continue d improvement in his transference as of 01/31/2017. 2. Recent multiple hospitalizations. A. [facility] from 12/20/2016-12/28/2016 for a non-ST segment elevated myocardial infar ction and acute bronchitis. B. [facility] from 12/28/2016 to 01/11/2017 for severe weakne ss and deconditioning and acute bronchitis. C. [facility] from 01/17/2017 until 01/22/2017 for acute on chronic sys tolic congestive heart failure. 3. Ischemic cardiomyopathy. A. Ejection fraction 20-25% with severe dilation of the left atrium and right atrium and akineti c motion of the inferior left ventricle and enlargement of the left ventricle with severe tricuspid regur gitation and moderate mitral regurgitation on 01/18/2017. B. Complicated by chronic diastolic and systolic congestive heart failure. C. Status post AICD/pacemaker. 1. Status post battery replacement on 01/17/2017. Incision site healing as of 01/26/2017. D. No evidence of acute congestive heart failure as of 01/31/2017. 4. Coronary artery disease. A. Status post CAB. B. Complicated by ischemic cardiomyopathy. C. History of non-ST segment elevated myocardial infarction on 12/20/2016, managed medically. 5. Chronic atrial fibrillation. A. Rate controlled. B. Recent anticoagulant with Eliquis stopped due to frequent falls. 6. Hypertension. 7. Stage 4 chronic kidney disease. A. GFR 25, improved from 23 yesterday, as of 01/26/2017. 8. Obstructive sleep apnea. A. Uses CPAP when sleeping. 9. Chronic hypoxemia, uses O2 when sleeping and p.r.n. 10. Chronic obstructive pulmonary disease. 11. Peripheral neuropathy of the lower extremity. 12. Multiple contusions from multiple falls. 13. Chronic low back pain secondary to spondylosis. A. Controlled as of 01/31/2017. 14. Insomnia. A. Controlled as of 01/31/2017. 15. Code status: DNR. 16. Anasarca. A. Gradually resolving, weight 220 as of 01/31/2017. 17. Thrombocytopenia. A. Platelet count stable at 44,000 as of 01/26/2017. PLAN: Continue present care. Continue physical therapy.
[2017-01-31] MEDS: Acetaminophen 325 MG TAB PO PRN (18:29)
[2017-01-31] MEDS: Furosemide 40 MG TAB PO SCH (21:11)
[2017-02-01 07:37] LABS: Anion Gap 19 mmol/L (10-20); BUN (Urea Nitrogen) 48 mg/dL (8.4-25.7); Calc. Creatinine Clearance 34 mL/min (70-130); Carbon Dioxide 25 mmol/L (23-31); Chloride 104 mmol/L (98-107); Estimated GFR-MDRD 27; Potassium 4.5 mmol/L (3.5-5.1); Sodium 143 mmol/L (136-145)
[2017-02-01 07:38] LABS: Calcium 8.9 mg/dL (7.8-10.44); Glucose 115 mg/dL (83-110)
[2017-02-01 07:46] LABS: #Basophils 0.1 thou/uL (0.0-0.2); #Eosinphils 0.2 thou/uL (0.0-0.7); #Lymphocytes 1.2 thou/uL (1.20-3.40); #Monocytes 0.5 thou/uL (0.11-0.59); #Neutrophils 3.6 thou/uL (1.40-6.50); %Basophils 1.4 % (0.0-1.0); %Eosinophils 4.4 % (0.0-10.0); %Monocytes 9.3 % (0.0-10.0); Giant Platelets SLIGHT; Hemoglobin 12.3 g/dL (14.0-18.0); Large Platelets MODERATE; MDiff Complete? YES; Manual Diff?? NO; Mean Corpuscular HGB CONC 31.8 g/dL (32.0-36.0); Mean Corpuscular Hemoglobin 31.1 pg (27.0-31.0); Mean Corpuscular Volume 97.9 fl (80.0-94.0); Mean Platelet Volume 14.6 fL (7.4-10.4); Nucleated RBC 0 % (0); PLT Morphology Comment Appears Decreased; Platelet Count 51 thou/uL (130-400); Polychromasia SLIGHT = 2-3 cells (100X) (0-2/hpf); RBC Distribution Width 15.7 % (11.5-14.5); Red Blood Cell (RBC) Count 3.95 mill/uL (4.70-6.10); White Blood Cell (WBC) Count 5.6 thou/uL (4.8-10.8)
[2017-02-01] MEDS: Pregabalin 50 MG CAP PO SCH ×3 (08:46→20:56)
[2017-02-01] MEDS: Pregabalin 25 MG CAP PO SCH ×3 (08:46→20:57)
[2017-02-01] MEDS: Furosemide 20 MG TAB PO SCH (08:47)
[2017-02-01] MEDS: Potassium Chloride 10 MEQ TAB PO SCH (08:48)
[2017-02-01] MEDS: Aspirin 81 mg Enteric Coated Tablet PO SCH (08:48)
[2017-02-01] MEDS ORDERED: Bisacodyl 10 MG SUPP PR PRN (08:53)
[2017-02-01] MEDS: Polyethylene Glycol 3350 17 GM Packet PO SCH (10:09)
--- NOTE | 2017-02-01 12:29 | PRG ---
DATE OF SERVICE: 02/01/2017 SUBJECTIVE: The patient said he is doing better. He is progressing with his therapy. He says the s welling in his arms and legs continues to go down and his weight is dropping. He has had no trouble with his breathing. Nurses said he has not had a bowel movement for 4 days. He is not on anything f or his bowels. OBJECTIVE: The patient is sitting up in a bedside chair, having completed his breakfast. He is aler t and appears very comfortable and in no distress. His temp is 98.2, pulse 86, respirations 20, O2 s at 99% on room air, blood pressure 138/65. His weight is down to 218. His lungs are clear. Heart, regular rate. Incision in the left upper anterior chest over the AICD is healing. There is no surro unding redness. The edema in extremities continued to diminish. He still has 1+ in the legs, but th ey look smaller and the left arm at the elbow still has some pitting edema, but this also is smaller and less edema. His lab shows an H&H of 12.3 and 38.7, white cell count 5600 with 64% segs, 21% lymphocytes, and a pl atelet count that is stable at 51,000. His sodium is 143, potassium 4.5, BUN stable at 48, creatinin e stable at 2.32, GFR stable at 27. FBS 115. ASSESSMENT: 1. Severe weakness and deconditioning. A. Secondary to recent multiple hospitalizations. His ischemic cardiomyopathy with recent acute episodes of congestive failure and his chronic low back pain. B. Continued improvement with his walking distance using a rolling walker for support. Continue d improvement in his transference as of 02/01/2017. 2. Recent multiple hospitalizations. A. [facility] from 12/20/2016-12/28/2016 for a non-ST segment elevated myocardial infar ction and acute bronchitis. B. [facility] from 12/28/2016 to 01/11/2017 for severe weakne ss and deconditioning and acute bronchitis. C. [facility] from 01/17/2017 until 01/22/2017 for acute on chronic sys tolic congestive heart failure. 3. Ischemic cardiomyopathy. A. Ejection fraction 20-25% with severe dilation of the left atrium and right atrium and akineti c motion of the inferior left ventricle and enlargement of the left ventricle with severe tricuspid regur gitation and moderate mitral regurgitation on 01/18/2017. B. Complicated by chronic diastolic and systolic congestive heart failure. C. Status post AICD/pacemaker. 1. Status post battery replacement on 01/17/2017. The incision is healing well as of 2016. D. No evidence of acute congestive heart failure as of 02/01/2017. 4. Coronary artery disease. A. Status post CAB. B. Complicated by ischemic cardiomyopathy. C. History of non-ST segment elevated myocardial infarction on 12/20/2016, managed medically. 5. Chronic atrial fibrillation. A. Rate controlled. B. Recent anticoagulant with Eliquis stopped due to frequent falls. 6. Hypertension. 7. Stage 4 chronic kidney disease. A. GFR stable at 27 as of 02/01/2017. 8. Obstructive sleep apnea. A. Uses CPAP when sleeping. 9. Chronic hypoxemia, uses O2 when sleeping and p.r.n. 10. Chronic obstructive pulmonary disease. 11. Peripheral neuropathy of the lower extremity. 12. Multiple contusions from multiple falls. A. Gradually resolving as of 02/01/2017. 13. Chronic low back pain secondary to spondylosis. A. Controlled as of 02/01/2017. 14. Insomnia. A. Controlled as of 01/31/2017. 15. Code status: DNR. 16. Anasarca. A. Continued gradual improvement with the weight down to 218 from a high during this admission of 231 as of 02/01/2017. 17. Thrombocytopenia. A. Stable with platelet count of 51,000 as of 02/01/2017. 18. Constipation. PLAN: Continue present care. We will continue the present dose of furosemide. This is helping him mobilize the fluid and his kidneys seemed to be tolerating it fine. Continue physical therapy. Will start patient on MiraLax on a daily basis and use a Dulcolax suppository as needed. We will do a fo llow up on his platelet count, electrolytes on Saturday02/04/2017.
[2017-02-01] MEDS: Furosemide 40 MG TAB PO SCH (20:57)
[2017-02-01] MEDS: Acetaminophen 325 MG TAB PO PRN (23:01)
[2017-02-02] MEDS: Polyethylene Glycol 3350 17 GM Packet PO SCH (08:26)
[2017-02-02] MEDS: Furosemide 20 MG TAB PO SCH (08:27)
[2017-02-02] MEDS: Potassium Chloride 10 MEQ TAB PO SCH (08:27)
[2017-02-02] MEDS: Pregabalin 50 MG CAP PO SCH ×3 (08:27→20:13)
[2017-02-02] MEDS: Aspirin 81 mg Enteric Coated Tablet PO SCH (08:27)
[2017-02-02] MEDS: Pregabalin 25 MG CAP PO SCH ×3 (08:28→20:14)
--- NOTE | 2017-02-02 10:21 | PRG ---
DATE OF SERVICE: 02/02/2017 SUBJECTIVE: The patient said he had a good night. He is feeling better. He is doing better with hi s therapy. OBJECTIVE: GENERAL: The patient is sitting up in a lounge chair. He looks very comfortable and in no distress. VITAL SIGNS: Temperature 96.6, pulse 77, O2 sat 94% on room air, respirations 20, blood pressure 125 /75. Weight stable at 118. Lungs: Clear. HEART: Regular rate. The incision over the left upper anterior chest is healing. There is no surro unding redness. The swelling in the forearm, the left continues to diminish, those not totally resol july. Still has 1+ in the legs, a little more on the left. Overall, though the legs continued to loo k a little better. ASSESSMENT: 1. Severe weakness and deconditioning. A. Secondary to recent multiple hospitalizations. His ischemic cardiomyopathy with recent acute episodes of congestive failure and his chronic low back pain. B. Continued improvement with his walking distance using a rolling walker for support. Continue d improvement in his transference as of 02/02/2017. 2. Recent multiple hospitalizations. A. [facility] from 12/20/2016-12/28/2016 for a non-ST segment elevated myocardial infar ction and acute bronchitis. B. [facility] from 12/28/2016 to 01/11/2017 for severe weakne ss and deconditioning and acute bronchitis. C. [facility] from 01/17/2017 until 01/22/2017 for acute on chronic sys tolic congestive heart failure. 3. Ischemic cardiomyopathy. A. Ejection fraction 20-25% with severe dilation of the left atrium and right atrium and akineti c motion of the inferior left ventricle and enlargement of the left ventricle with severe tricuspid regur gitation and moderate mitral regurgitation on 01/18/2017. B. Complicated by chronic diastolic and systolic congestive heart failure. C. Status post AICD/pacemaker. 1. Status post battery replacement on 01/17/2017. The incision is healing well as of 2016. D. No evidence of acute congestive heart failure as of 02/02/2017. 4. Coronary artery disease. A. Status post CAB. B. Complicated by ischemic cardiomyopathy. C. History of non-ST segment elevated myocardial infarction on 12/20/2016, managed medically. 5. Chronic atrial fibrillation. A. Rate controlled. B. Recent anticoagulant with Eliquis stopped due to frequent falls. 6. Hypertension. 7. Stage 4 chronic kidney disease. A. GFR stable at 27 as of 02/01/2017. 8. Obstructive sleep apnea. A. Uses CPAP when sleeping. 9. Chronic hypoxemia, uses O2 when sleeping and p.r.n. 10. Chronic obstructive pulmonary disease. 11. Peripheral neuropathy of the lower extremity. 12. Multiple contusions from multiple falls. A. Gradually resolving as of 02/01/2017. 13. Chronic low back pain secondary to spondylosis. A. Controlled as of 02/01/2017. 14. Insomnia. A. Controlled as of 01/31/2017. 15. Code status: DNR. 16. Anasarca. A. Resolving as of 02/02/2017 17. Thrombocytopenia. A. Stable with platelet count of 51,000 as of 02/01/2017. 18. Constipation. PLAN: Continue present care. Continue physical therapy tomorrow. The patient plans to leave in for a few hours for Thanksgiving meal at his home.
[2017-02-02] MEDS: Acetaminophen 325 MG TAB PO PRN (15:10)
[2017-02-02] MEDS: Melatonin 3 MG TAB PO PRN (20:13)
[2017-02-02] MEDS: Furosemide 40 MG TAB PO SCH (20:15)
[2017-02-03] MEDS: Polyethylene Glycol 3350 17 GM Packet PO SCH ×2 (08:18→08:23)
[2017-02-03] MEDS: Furosemide 20 MG TAB PO SCH (08:19)
[2017-02-03] MEDS: Aspirin 81 mg Enteric Coated Tablet PO SCH (08:19)
[2017-02-03] MEDS: Potassium Chloride 10 MEQ TAB PO SCH (08:19)
[2017-02-03] MEDS: Pregabalin 25 MG CAP PO SCH ×3 (08:20→20:49)
[2017-02-03] MEDS: Pregabalin 50 MG CAP PO SCH ×3 (08:21→20:50)
[2017-02-03] MEDS: Furosemide 40 MG TAB PO SCH (20:49)
[2017-02-04 07:38] LABS: Anion Gap 17 mmol/L (10-20); BUN (Urea Nitrogen) 53 mg/dL (8.4-25.7); Calc. Creatinine Clearance 29 mL/min (70-130); Calcium 8.7 mg/dL (7.8-10.44); Carbon Dioxide 23 mmol/L (23-31); Chloride 107 mmol/L (98-107); Estimated GFR-MDRD 22; Glucose 126 mg/dL (83-110); Potassium 4.2 mmol/L (3.5-5.1); Sodium 143 mmol/L (136-145)
[2017-02-04] MEDS: Furosemide 20 MG TAB PO SCH (08:08)
[2017-02-04] MEDS: Polyethylene Glycol 3350 17 GM Packet PO SCH (08:08)
[2017-02-04] MEDS: Aspirin 81 mg Enteric Coated Tablet PO SCH (08:09)
[2017-02-04] MEDS: Pregabalin 25 MG CAP PO SCH ×3 (08:09→22:24)
[2017-02-04] MEDS: Potassium Chloride 10 MEQ TAB PO SCH (08:10)
[2017-02-04] MEDS: Pregabalin 50 MG CAP PO SCH ×3 (08:10→22:24)
--- NOTE | 2017-02-04 08:26 | RAD ---
CHEST 1 VIEW: Date: 02/04/17 HISTORY: Dyspnea. Decreased breath sounds. COMPARISON: 01/23/17. FINDINGS: Cardiac silhouette remains magnified and enlarged. Pulmonary vasculature is upper limits of normal. M ediastinum is midline with aortic calcification, postoperative changes, and a multilead left subclavi an cardiac electronic device. There is no evidence of pneumothorax. IMPRESSION: Cardiomegaly and other findings are stable. POS: YASIR
[2017-02-04] MEDS ORDERED: cefTRIAXone\\ROCEPHIN 1 GM in Sodium Chloride 0.9% 100 ML IVPB SCH (08:30)
[2017-02-04] MEDS ORDERED: Sterile Water 10 ML VIAL FS SCH (09:00)
[2017-02-04 09:37] LABS: #Basophils 0.1 thou/uL (0.0-0.2); #Lymphocytes 0.5 thou/uL (1.20-3.40); #Neutrophils 15.8 thou/uL (1.40-6.50); %Basophils 0.4 % (0.0-1.0); %Eosinophils 0.1 % (0.0-10.0); %Monocytes 5.9 % (0.0-10.0); %Neutrophils 90.5 % (42.0-75.0); Hemoglobin 12.5 g/dL (14.0-18.0); Mean Corpuscular HGB CONC 32.4 g/dL (32.0-36.0); Mean Corpuscular Hemoglobin 31.5 pg (27.0-31.0); Mean Corpuscular Volume 97.3 fl (80.0-94.0); Mean Platelet Volume 11.1 fL (7.4-10.4); RBC Distribution Width 15.4 % (11.5-14.5); Red Blood Cell (RBC) Count 3.96 mill/uL (4.70-6.10); White Blood Cell (WBC) Count 17.4 thou/uL (4.8-10.8)
[2017-02-04 09:38] LABS: Platelet Count 55 thou/uL (130-400)
[2017-02-04] MEDS: Clindamycin/D5W 600 MG in Premix Bag 1 BAG IVPB SCH ×2 (10:01→20:48)
[2017-02-04] MEDS: cefTRIAXone\\ROCEPHIN 1 GM VIAL SLOW IVP SCH (10:07)
--- NOTE | 2017-02-04 11:11 | PRG ---
DATE OF SERVICE: 02/04/2017 SUBJECTIVE: This morning, the nurse noted that patient was a little more confused than usual. His O2 sat on 2 liters was a little lower at 92% and had a little mild cough. He had a temperature of 101.3 tympanic, blood pressure was systolic 119. The patient was seen this morning. He said he was feeling okay. The nurse said that the confusion seems to be improved since earlier. The patient said he did go out yesterday for a pass for Thanksgiving dinner at his home. The patient said he is coughing a little bit, but otherwise nothing hurts him. OBJECTIVE: VITAL SIGNS: Temperature this morning was 101.3, his blood pressure systolic 119, pulse 74, and respirations 24. LUNGS: There are little decreased breath sounds. There are some rales at the left base. HEART: Regular rate. ABDOMEN: Soft and nontender. MUSCULOSKELETAL: Lower extremities still have 1+ edema, more on the left than the right. Left lower leg has some increased redness and increased heat with respective area of cellulitis. The abrasion on the right knee is formed in total ulceration that is about a centimeter and half in diameter, has a mucoid drainage with little surrounding redness. The patient has also small ulceration with scab and surrounding redness on the dorsum of the left hand. LABORATORY DATA AND IMAGING: His lab shows sodium of 143, potassium of 4.2, BUN 53, creatinine 2.73. GFR has dropped to 22, glucose 126. CBC pending. UA has been ordered and pending. Chest x-ray shows marked cardiomegaly. There is AP view and there is obscuring of the left base due to the large heart. There is some pulmonary vascular congestion, more in the left chest than in the right. ASSESSMENT: 1. Severe weakness and deconditioning. A. Secondary to recent multiple hospitalizations. His ischemic cardiomyopathy with recent acute episodes of congestive failure and his chronic low back pain. B. Continued improvement with his walking distance using a rolling walker for support. Continued improvement in his transference as of 02/02/2017. C. Some decline in the strength due to the febrile illness as of the morning of 02/04/2017. 2. Recent multiple hospitalizations. A. [facility] from 12/20/2016-12/28/2016 for a non-ST segment elevated myocardial infarction and acute bronchitis. B. [facility] from 12/28/2016 to 01/11/2017 for severe weakness and deconditioning and acute bronchitis. C. [facility] from 01/17/2017 until 01/22/2017 for acute on chronic systolic congestive heart failure. 3. Ischemic cardiomyopathy. A. Ejection fraction 20-25% with severe dilation of the left atrium and right atrium and akinetic motion of the inferior left ventricle and enlargement of the left ventricle with severe tricuspid regurgitation and moderate mitral regurgitation on 01/18/2017. B. Complicated by chronic diastolic and systolic congestive heart failure. C. Status post AICD/pacemaker. 1. Status post battery replacement on 01/17/2017. The incision is healing well as of 02/01/2017. D. Chest x-ray shows some increase in the cardiomegaly and may be some pulmonary vascular congestion compatible with some failure as of 02/04/2017. 4. Coronary artery disease. A. Status post CAB. B. Complicated by ischemic cardiomyopathy. C. History of non-ST segment elevated myocardial infarction on 12/20/2016, managed medically. 5. Chronic atrial fibrillation. A. Rate controlled. B. Recent anticoagulant with Eliquis stopped due to frequent falls. 6. Hypertension. 7. Stage 4 chronic kidney disease. A. GFR has declined to 22 as of 02/04/2017. 8. Obstructive sleep apnea. A. Uses CPAP when sleeping. 9. Chronic hypoxemia, uses O2 when sleeping and p.r.n. 10. Chronic obstructive pulmonary disease. 11. Peripheral neuropathy of the lower extremity. 12. Multiple contusions from multiple falls. A. Gradually resolving as of 02/01/2017. 13. Chronic low back pain secondary to spondylosis. A. Controlled as of 02/01/2017. 14. Insomnia. A. Controlled as of 01/31/2017. 15. Code status: DNR. 16. Anasarca. A. The patient still has some edema in the left arm and lower extremities. 17. Thrombocytopenia. A. Stable with platelet count of 51,000 as of 02/01/2017. 18. Constipation. 19. Cellulitis of the left lower leg as of 02/04/2017. 20. Multiple abrasions with secondary infection over the right knee and left hand as of 02/04/2017. 21. Febrile illness. A. Cannot exclude left basilar pneumonia, but he also has evidence of cellulitis of the left leg. PLAN: We will continue the present dose of Lasix in spite of the decline in renal function due to his chest x-ray showing some elements of failure. We will place the patient on clindamycin every 8 hours for cellulitis and possible infection of the abrasion on the right knee and left hand. We will also add Rocephin for a possible left basilar pneumonia. See orders. MTDD
[2017-02-04 14:05] LABS: Bilirubin Negative (Negative); Blood, Urine Trace (Negative); Clarity Clear (Clear); Glucose, Urine (Dipstick) Negative (Negative); Leukocyte Negative (Negative); Nitrite Negative (Negative); Protein, Urine (Dipstick) Trace mg/dL (Neg-Trace); Specific Gravity, Urine 1.015 (1.005-1.030); Urobilinogen 0.2 mg/dL (0.2-1.0); pH, Urine 5.5 (5.0-9.0)
[2017-02-04 14:16] LABS: Bacteria/HPF Rare-Few HPF (None Seen); RBC/HPF 0-3 HPF (0-3); Squamous Epithelial 0-3 HPF (0-3); WBC/HPF None Seen HPF (0-3)
[2017-02-04] MEDS ORDERED: Silver Sulfadiazine 1% Cream 50 GM JAR TOP PRN (15:20)
[2017-02-04] MEDS: Acetaminophen 325 MG TAB PO PRN ×2 (15:56→16:00)
[2017-02-04] MEDS: Furosemide 40 MG TAB PO SCH (22:22)
[2017-02-05] MEDS: Silver Sulfadiazine 1% Cream 50 GM JAR TOP SCH ×3 (05:41→20:35)
[2017-02-05 07:17] LABS: Anion Gap 21 mmol/L (10-20); BUN (Urea Nitrogen) 56 mg/dL (8.4-25.7); Calc. Creatinine Clearance 28 mL/min (70-130); Calcium 8.9 mg/dL (7.8-10.44); Carbon Dioxide 21 mmol/L (23-31); Chloride 107 mmol/L (98-107); Estimated GFR-MDRD 22; Glucose 135 mg/dL (83-110); Potassium 4.6 mmol/L (3.5-5.1); Sodium 144 mmol/L (136-145)
[2017-02-05] MEDS: Potassium Chloride 10 MEQ TAB PO SCH (08:46)
[2017-02-05] MEDS: Aspirin 81 mg Enteric Coated Tablet PO SCH (08:47)
[2017-02-05] MEDS: Furosemide 20 MG TAB PO SCH (08:47)
[2017-02-05] MEDS: Pregabalin 25 MG CAP PO SCH ×3 (08:48→20:33)
[2017-02-05] MEDS: Polyethylene Glycol 3350 17 GM Packet PO SCH (08:48)
[2017-02-05] MEDS: Pregabalin 50 MG CAP PO SCH ×3 (08:49→20:32)
[2017-02-05] MEDS: Clindamycin/D5W 600 MG in Premix Bag 1 BAG IVPB SCH ×2 (08:58→20:33)
[2017-02-05 09:43] LABS: #Basophils 0.1 thou/uL (0.0-0.2); #Lymphocytes 0.9 thou/uL (1.20-3.40); #Monocytes 0.8 thou/uL (0.11-0.59); #Neutrophils 11.4 thou/uL (1.40-6.50); %Basophils 0.5 % (0.0-1.0); %Eosinophils 0.1 % (0.0-10.0); %Lymphocytes 6.8 % (21.0-51.0); %Monocytes 5.7 % (0.0-10.0); Hemoglobin 11.9 g/dL (14.0-18.0); Mean Corpuscular HGB CONC 31.4 g/dL (32.0-36.0); Mean Corpuscular Hemoglobin 30.5 pg (27.0-31.0); Mean Corpuscular Volume 97.2 fl (80.0-94.0); Mean Platelet Volume 12.1 fL (7.4-10.4); RBC Distribution Width 15.2 % (11.5-14.5); White Blood Cell (WBC) Count 13.1 thou/uL (4.8-10.8)
[2017-02-05 09:49] LABS: Platelet Count 52 thou/uL (130-400)
[2017-02-05] MEDS: cefTRIAXone\\ROCEPHIN 1 GM VIAL SLOW IVP SCH (10:41)
[2017-02-05] MEDS ORDERED: Cefepime 1 GM in Sodium Chloride 0.9% 100 ML IVPB SCH (10:45)
[2017-02-05] MEDS: traMADol HCl 50 MG TAB PO PRN (10:47)
[2017-02-05] MEDS: Cefepime 1 GM, Admixture Fee 1 EACH in Sterile Water 10 ML SLOW IVP SCH (13:53)
--- NOTE | 2017-02-05 15:51 | PRG ---
DATE OF SERVICE: 02/05/2017 SUBJECTIVE: The patient said he is feeling better today. He has already been up working with physic al therapy. He did get a little more tired than usual with therapy. The patient said he is having s ome pain behind the right knee. The left leg feels better. OBJECTIVE: The patient was able to walk back with standby assistance and the use of his walker from Physical Therapy Department. He is a little tired from the walk. He does not appear in any acute di stress. His vital signs shows a temperature 98.4, pulse 105, respirations 20, O2 sat 96% on room air , blood pressure 118/67. His weight is down to 219. His lungs are clear except for some minimal ral es at the left posterior base. Heart; regular rate. Extremities; the left arm and the swelling is g oing down, there is a Mepilex dressing over the dorsum of the left hand. The edema in the legs is di minished. There is still a little redness in the left lower leg and increased warmth, but it looks m uch better today than yesterday. The superficial ulceration over the right patella region is dressed with a Mepilex. There is no swelling of the knee. There is no point tenderness of the calf or behi nd the knee. The patient's lab yesterday showed an H&H of 12.5 and 38.5 with a white blood cell count of 17,400 wi th 91% segs, 3% lymphocytes, and a platelet count up to 55,000. His sodium is 144, potassium 4.6, BU N 56, creatinine 2.79, GFR stable at 22, glucose 135. Chest x-ray was reviewed by radiologist and x-ray was stable compared to previous x-ray. He has the marked cardiomegaly. There is mild pulmonary vascular congestion, but all of these are stable change s. Two of 2 blood cultures are positive for gram negative rods. Final identification pending. ASSESSMENT: 1. Severe weakness and deconditioning. A. Secondary to recent multiple hospitalizations. His ischemic cardiomyopathy with recent acute episodes of congestive failure and his chronic low back pain. B. Continued improvement with his walking distance using a rolling walker for support. Continue d improvement in his transference as of 02/02/2017. C. Strength improved and able to ambulate with the use of a walker as of 02/05/2017. 2. Recent multiple hospitalizations. A. [facility] [place] from 12/20/2016-12/28/2016 for a non-ST segment elevated myocardial infar ction and acute bronchitis. B. [facility] from 12/28/2016 to 01/11/2017 for severe weakne ss and deconditioning and acute bronchitis. C. [facility] from 01/17/2017 until 01/22/2017 for acute on chronic sys tolic congestive heart failure. 3. Ischemic cardiomyopathy. A. Ejection fraction 20-25% with severe dilation of the left atrium and right atrium and akineti c motion of the inferior left ventricle and enlargement of the left ventricle with severe tricuspid regur gitation and moderate mitral regurgitation on 01/18/2017. B. Complicated by chronic diastolic and systolic congestive heart failure. C. Status post AICD/pacemaker. 1. Status post battery replacement on 01/17/2017. The incision is healing well as of 2016. D. No evidence of acute congestive heart failure as of 02/05/2017. 4. Coronary artery disease. A. Status post CAB. B. Complicated by ischemic cardiomyopathy. C. History of non-ST segment elevated myocardial infarction on 12/20/2016, managed medically. 5. Chronic atrial fibrillation. A. Rate controlled. B. Recent anticoagulant with Eliquis stopped due to frequent falls. 6. Hypertension. 7. Stage 4 chronic kidney disease. A. GFR has declined to 22 as of 02/04/2017. 8. Obstructive sleep apnea. A. Uses CPAP when sleeping. 9. Chronic hypoxemia, uses O2 when sleeping and p.r.n. 10. Chronic obstructive pulmonary disease. 11. Peripheral neuropathy of the lower extremity. 12. Multiple contusions from multiple falls. A. Gradually resolving as of 02/01/2017. 13. Chronic low back pain secondary to spondylosis. A. Controlled as of 02/01/2017. 14. Insomnia. A. Controlled as of 01/31/2017. 15. Code status: DNR. 16. Anasarca. A. Resolving as of 02/05/2017. 17. Thrombocytopenia. A. Stable with platelet count of 55,000 as of 02/05/2017. 18. Constipation. 19. Cellulitis of the left lower leg as of 02/04/2017. A. Improved as of 02/05/2017. 20. Multiple abrasions with secondary infection over the right knee and left hand as of 02/04/2017. 21. Two positive blood cultures with gram negative rods drawn on 02/04/2017. 22. Febrile illness. A. Etiology suspect related to the cellulitis of the leg, but patient has 2 positive blood cultu res, results of these are pending. B. Improved with no fever. PLAN: Overall, the patient looks better. The cellulitis of the leg looks better. The chest x-ray s howed chronic changes that were unchanged with marked cardiomegaly, the left costophrenic angle, the left lower lobe is obscured. Suspect the rales I hear there are more from atelectasis than a pneumon ia. We will continue the clindamycin. Will continue the ceftriaxone. The patient clinically is muc h improved. We will repeat blood cultures in the morning and repeat blood tests including CBC and ba sic metabolic panel.
[2017-02-05] MEDS: Furosemide 40 MG TAB PO SCH (20:32)
[2017-02-05] MEDS: Melatonin 3 MG TAB PO PRN (20:43)
[2017-02-06 07:15] LABS: Hemoglobin 11.8 g/dL (14.0-18.0); Mean Corpuscular HGB CONC 31.5 g/dL (32.0-36.0); Mean Corpuscular Hemoglobin 30.7 pg (27.0-31.0); Mean Corpuscular Volume 97.6 fl (80.0-94.0); Mean Platelet Volume 14.5 fL (7.4-10.4); Platelet Count 61 thou/uL (130-400); RBC Distribution Width 15.5 % (11.5-14.5); Red Blood Cell (RBC) Count 3.83 mill/uL (4.70-6.10); White Blood Cell (WBC) Count 9.8 thou/uL (4.8-10.8)
[2017-02-06 07:17] LABS: Anion Gap 19 mmol/L (10-20); BUN (Urea Nitrogen) 60 mg/dL (8.4-25.7); Calc. Creatinine Clearance 28 mL/min (70-130); Calcium 8.8 mg/dL (7.8-10.44); Carbon Dioxide 23 mmol/L (23-31); Chloride 102 mmol/L (98-107); Estimated GFR-MDRD 21; Glucose 123 mg/dL (83-110); Potassium 4.3 mmol/L (3.5-5.1); Sodium 140 mmol/L (136-145)
[2017-02-06 07:48] LABS: Anisocytosis SLIGHT = 6-15 cells (100X) (0-5/hpf); Band 4 % (5-11); Lymphocytes 10 % (21-51); MDiff Complete? YES; Manual Diff?? YES; Monocytes 4 % (0-10); Neutrophil 82 % (42-75); Poikilocytosis MODERATE=16-30 cells (100X) (0-5/hpf)
[2017-02-06 07:49] LABS: Large Platelets SLIGHT; PLT Morphology Comment Appears Decreased; Schistocytes SLIGHT = 2-5 cells (100X) (0-1/hpf)
[2017-02-06] MEDS: Potassium Chloride 10 MEQ TAB PO SCH (08:17)
[2017-02-06] MEDS: Pregabalin 25 MG CAP PO SCH ×3 (08:18→20:44)
[2017-02-06] MEDS: Aspirin 81 mg Enteric Coated Tablet PO SCH (08:18)
[2017-02-06] MEDS: Pregabalin 50 MG CAP PO SCH ×3 (08:18→20:43)
[2017-02-06] MEDS: Polyethylene Glycol 3350 17 GM Packet PO SCH (08:19)
[2017-02-06] MEDS: Furosemide 40 MG TAB PO SCH ×2 (08:30→20:43)
[2017-02-06] MEDS: Clindamycin/D5W 600 MG in Premix Bag 1 BAG IVPB SCH ×2 (08:30→20:44)
[2017-02-06] MEDS: Silver Sulfadiazine 1% Cream 50 GM JAR TOP SCH ×2 (08:35→20:45)
--- NOTE | 2017-02-06 08:48 | PRG ---
DATE OF SERVICE: 02/06/2017 SUBJECTIVE: The patient said he is feeling good today. He has been doing very well with physical th erapy. He is just on his way back from the physical therapy room, walking with his walker and therap ist has been standby. He has no complaints. OBJECTIVE: GENERAL APPEARANCE: The patient is standing and leaning against his walker. He appears very comfort able, looks much better today. VITAL SIGNS: Shows temperature of 96.8, pulse 66, respirations 22, O2 sat 92% on room air, blood pre ssure 133/76. His weight is 220. LUNGS: Clear. Minimal rales previously noted to left base have resolved. HEART: Regular rate. EXTREMITIES: Lower extremities, redness over the left lower leg is resolving. There is just a sligh t pink discoloration to the skin. There is no increased warmth. Wounds over the right knee and left dorsal hand are improving. LABORATORY DATA: Today shows hemoglobin and hematocrit of 11.8 and 37.4, white cell count down to 9, 800. His sodium is 140, potassium is 4.3, BUN 60, creatinine 2.83, GFR 21. FBS 123. Two out of two blood cultures are positive for Pseudomonas aeruginosa. Sensitivity report is pending. ASSESSMENT: 1. Severe weakness and deconditioning. A. Secondary to recent multiple hospitalizations. His ischemic cardiomyopathy with recent acute episodes of congestive failure and his chronic low back pain. B. Continued improvement with his walking distance using a rolling walker for support. Continue d improvement in his transference as of 02/02/2017. C. Improved with increased walking distance, strength, and ability to transfer with assistance a s of 02/06/2017. 2. Recent multiple hospitalizations. A. [facility] from 12/20/2016-12/28/2016 for a non-ST segment elevated myocardial infar ction and acute bronchitis. B. [facility] from 12/28/2016 to 01/11/2017 for severe weakne ss and deconditioning and acute bronchitis. C. [facility] from 01/17/2017 until 01/22/2017 for acute on chronic sys tolic congestive heart failure. 3. Ischemic cardiomyopathy. A. Ejection fraction 20-25% with severe dilation of the left atrium and right atrium and akineti c motion of the inferior left ventricle and enlargement of the left ventricle with severe tricuspid regur gitation and moderate mitral regurgitation on 01/18/2017. B. Complicated by chronic diastolic and systolic congestive heart failure. C. Status post AICD/pacemaker. 1. Status post battery replacement on 01/17/2017. The incision is healing well as of 2016. D. No evidence of acute congestive heart failure as of 02/06/2017. 4. Coronary artery disease. A. Status post CAB. B. Complicated by ischemic cardiomyopathy. C. History of non-ST segment elevated myocardial infarction on 12/20/2016, managed medically. 5. Chronic atrial fibrillation. A. Rate controlled. B. Recent anticoagulant with Eliquis stopped due to frequent falls. 6. Hypertension. 7. Stage 4 chronic kidney disease. A. Glomerular filtration rate has declined to 21 from 22 as of 02/06/2017. Improved with platel et count up to 61,000. 8. Obstructive sleep apnea. A. Uses CPAP when sleeping. 9. Chronic hypoxemia, uses O2 when sleeping and p.r.n. 10. Chronic obstructive pulmonary disease. 11. Peripheral neuropathy of the lower extremity. 12. Multiple contusions from multiple falls. A. Gradually resolving as of 02/01/2017. 13. Chronic low back pain secondary to spondylosis. A. Controlled as of 02/01/2017. 14. Insomnia. A. Controlled as of 01/31/2017. 15. Code status: DNR. 16. Anasarca. A. Resolving as of 02/06/2017. 17. Thrombocytopenia. A. Stable with platelet count of 55,000 as of 02/05/2017. 18. Constipation. 19. Cellulitis of the left lower leg as of 02/04/2017. A. Improved as of 02/06/2017. 20. Multiple abrasions with secondary infection over the right knee and left hand as of 02/04/2017. 21. Pseudomonas aeruginosa bacteremia on 2/2 blood cultures drawn on 02/06/2017. A. Sensitivity report is pending. B. Improved on cefepime. 22. Febrile illness. A. Etiology secondary to the Pseudomonas bacteremia and cellulitis. B. Improved with no fever as of 02/06/2017. PLAN: We will continue the IV antibiotics with cefepime for 7-10 days. We will repeat blood culture s x2. Continue physical therapy. We will stop the afternoon dose of furosemide due to the rise in B UN and gradual decline in GFR. We will change the furosemide dosage from 60 in the morning and 40 in the afternoon to 40 b.i.d.
[2017-02-06] MEDS: traMADol HCl 50 MG TAB PO PRN ×2 (09:27→21:50)
[2017-02-06] MEDS: Cefepime 1 GM, Admixture Fee 1 EACH in Sterile Water 10 ML SLOW IVP SCH (12:30)
[2017-02-06] MEDS: Acetaminophen 325 MG TAB PO PRN (14:45)
[2017-02-07] MEDS: Polyethylene Glycol 3350 17 GM Packet PO SCH (08:30)
[2017-02-07] MEDS: Aspirin 81 mg Enteric Coated Tablet PO SCH (08:30)
[2017-02-07] MEDS: Potassium Chloride 10 MEQ TAB PO SCH (08:30)
[2017-02-07] MEDS: Furosemide 40 MG TAB PO SCH ×2 (08:31→20:33)
[2017-02-07] MEDS: Pregabalin 25 MG CAP PO SCH ×3 (08:31→20:33)
[2017-02-07] MEDS: Pregabalin 50 MG CAP PO SCH ×3 (08:32→20:33)
[2017-02-07] MEDS: Clindamycin/D5W 600 MG in Premix Bag 1 BAG IVPB SCH ×2 (08:32→20:32)
[2017-02-07] MEDS: Silver Sulfadiazine 1% Cream 50 GM JAR TOP SCH ×2 (08:33→20:34)
[2017-02-07] MEDS: Cefepime 1 GM, Admixture Fee 1 EACH in Sterile Water 10 ML SLOW IVP SCH (11:23)
--- NOTE | 2017-02-07 17:40 | PRG ---
DATE OF SERVICE: 02/07/2017 SUBJECTIVE: The patient said he is feeling a lot better today. He slept well. He is not having any problems. OBJECTIVE: GENERAL: The patient is sitting up in a chair. He is alert, talkative, and appears very comfortable and in no distress. VITAL SIGNS: Shows temperature 96.7, pulse 64, respirations 18, O2 sat 97% on 2 liters, blood pressu re 129/79. His weight is 221. LUNGS: Clear. HEART: Regular rate. EXTREMITIES: The edema in the arms, particularly the left have resolved, still has 1+ edema in the l egs, left leg is larger than the right chronically. The ulceration over the dorsum of the left hand looks better, the redness surrounding the wound has resolved. There is superficial ulceration that i s about a centimeter in diameter. There is no purulent drainage. Overall, this looks better. Over the right patella, the ulceration also is about a centimeter and a half. The surrounding redness has all resolved. Overall, the wound looks better. LABORATORY DATA: His blood cultures both are growing Pseudomonas aeruginosa that are sensitive to th e cefepime. Repeat blood cultures drawn on 02/06/2017 x2 have no growth to date. ASSESSMENT: 1. Severe weakness and deconditioning. A. Secondary to recent multiple hospitalizations. His ischemic cardiomyopathy with recent acute episodes of congestive failure and his chronic low back pain. B. Continued improvement with his walking distance using a rolling walker for support. Continue d improvement in his transference as of 02/02/2017. C. Continued improvement as of 02/07/2017. 2. Recent multiple hospitalizations. A. [facility] from 12/20/2016-12/28/2016 for a non-ST segment elevated myocardial infar ction and acute bronchitis. B. [facility] from 12/28/2016 to 01/11/2017 for severe weakne ss and deconditioning and acute bronchitis. C. [facility] from 01/17/2017 until 01/22/2017 for acute on chronic sys tolic congestive heart failure. 3. Ischemic cardiomyopathy. A. Ejection fraction 20-25% with severe dilation of the left atrium and right atrium and akineti c motion of the inferior left ventricle and enlargement of the left ventricle with severe tricuspid regur gitation and moderate mitral regurgitation on 01/18/2017. B. Complicated by chronic diastolic and systolic congestive heart failure. C. Status post AICD/pacemaker. 1. Status post battery replacement on 01/17/2017. Incision healing well as of 02/07/2017. D. No evidence of acute congestive heart failure as of 02/07/2017. 4. Coronary artery disease. A. Status post CAB. B. Complicated by ischemic cardiomyopathy. C. History of non-ST segment elevated myocardial infarction on 12/20/2016, managed medically. D. Asymptomatic as of 02/07/2017. 5. Chronic atrial fibrillation. A. Rate controlled. B. Recent anticoagulant with Eliquis stopped due to frequent falls. 6. Hypertension. 7. Stage 4 chronic kidney disease. A. Glomerular filtration rate has declined to 21 from 22 as of 02/06/2017. Improved with platel et count up to 61,000. 8. Obstructive sleep apnea. A. Uses CPAP when sleeping. 9. Chronic hypoxemia, uses O2 when sleeping and p.r.n. 10. Chronic obstructive pulmonary disease. 11. Peripheral neuropathy of the lower extremity. 12. Multiple contusions from multiple falls. A. Gradually resolving as of 02/01/2017. 13. Chronic low back pain secondary to spondylosis. A. Controlled as of 02/01/2017. 14. Insomnia. A. Controlled as of 01/31/2017. 15. Code status: DNR. 16. Anasarca. A. Resolving as of 02/06/2017. 17. Thrombocytopenia. A. Stable with platelet count of 55,000 as of 02/05/2017. 18. Constipation. 19. Cellulitis of the left lower leg as of 02/04/2017. A. Resolving as 02/07/2017. 20. Multiple abrasions with secondary infection over the right knee and left hand as of 02/04/2017. 21. Pseudomonas aeruginosa bacteremia on 2/2 blood cultures drawn on 02/06/2017. A. Sensitivity shows the Pseudomonas is sensitive to the cefepime. B. Repeat blood cultures drawn on 02/06/2017 shows no growth to date x2 as of 02/07/2017. C. Etiology of this bacteremia may have been from colonization of these infected wounds on his right knee and/or dorsum of the left hand. 22. Febrile illness. A. Etiology secondary to the Pseudomonas bacteremia and cellulitis. B. Improved. No fever as of 02/07/2017. PLAN: Overall, the patient is improved. He is making good progress with his physical therapy. Maryjane ent seems to be recovering well from the bacteremia. The wounds are healing. The patient will need to continue on the IV cefepime for 7-10 days, may then be able to switch him to oral antibiotics usin g Cipro or Levaquin, which the organism is also sensitive to.
[2017-02-08 05:41] LABS: Anion Gap 17 mmol/L (10-20); BUN (Urea Nitrogen) 60 mg/dL (8.4-25.7); Calc. Creatinine Clearance 32 mL/min (70-130); Calcium 8.6 mg/dL (7.8-10.44); Carbon Dioxide 23 mmol/L (23-31); Chloride 105 mmol/L (98-107); Estimated GFR-MDRD 24; Glucose 125 mg/dL (83-110); Potassium 4.5 mmol/L (3.5-5.1); Sodium 140 mmol/L (136-145)
[2017-02-08 05:58] LABS: #Basophils 0.1 thou/uL (0.0-0.2); #Eosinphils 0.3 thou/uL (0.0-0.7); #Lymphocytes 1.2 thou/uL (1.20-3.40); #Monocytes 0.6 thou/uL (0.11-0.59); #Neutrophils 4.2 thou/uL (1.40-6.50); %Basophils 1.2 % (0.0-1.0); %Eosinophils 4.5 % (0.0-10.0); %Monocytes 8.7 % (0.0-10.0); %Neutrophils 67.6 % (42.0-75.0); Hemoglobin 11.5 g/dL (14.0-18.0); Mean Corpuscular HGB CONC 31.9 g/dL (32.0-36.0); Mean Corpuscular Hemoglobin 30.5 pg (27.0-31.0); Mean Corpuscular Volume 95.8 fl (80.0-94.0); Mean Platelet Volume 12.6 fL (7.4-10.4); Platelet Count 66 thou/uL (130-400); RBC Distribution Width 15.2 % (11.5-14.5); Red Blood Cell (RBC) Count 3.75 mill/uL (4.70-6.10); White Blood Cell (WBC) Count 6.3 thou/uL (4.8-10.8)
[2017-02-08 06:01] LABS: Anisocytosis SLIGHT = 6-15 cells (100X) (0-5/hpf); Hypochromia MODERATE=16-30 cells (100X) (0-5/hpf); Poikilocytosis SLIGHT = 6-15 cells (100X) (0-5/hpf)
[2017-02-08 06:02] LABS: Giant Platelets SLIGHT; PLT Morphology Comment Appears Decreased; RBC Morphology Abnormal
[2017-02-08] MEDS: Clindamycin/D5W 600 MG in Premix Bag 1 BAG IVPB SCH ×2 (07:37→20:57)
[2017-02-08] MEDS: Potassium Chloride 10 MEQ TAB PO SCH (07:37)
[2017-02-08] MEDS: Aspirin 81 mg Enteric Coated Tablet PO SCH (08:16)
[2017-02-08] MEDS: Polyethylene Glycol 3350 17 GM Packet PO SCH (08:17)
[2017-02-08] MEDS: Furosemide 40 MG TAB PO SCH ×2 (08:17→20:58)
[2017-02-08] MEDS: Pregabalin 25 MG CAP PO SCH ×3 (08:17→20:58)
[2017-02-08] MEDS: Pregabalin 50 MG CAP PO SCH ×3 (08:19→20:59)
[2017-02-08] MEDS: Silver Sulfadiazine 1% Cream 50 GM JAR TOP SCH ×2 (08:29→20:59)
[2017-02-08 08:51] LABS: MDiff Complete? YES
[2017-02-08] MEDS: Cefepime 1 GM, Admixture Fee 1 EACH in Sterile Water 10 ML SLOW IVP SCH (11:28)
[2017-02-08] MEDS: traMADol HCl 50 MG TAB PO PRN (14:05)
--- NOTE | 2017-02-08 16:18 | PRG ---
DATE OF SERVICE: 02/08/2017 SUBJECTIVE: The patient says that he is having more swelling in his left leg, also a lot of pain in the popliteal of the right knee. His breathing is doing fine. The patient said the leg hurts more o n the right when he walks. OBJECTIVE: The patient is sitting up in his chair, is alert and appears comfortable and in no distre ss. His temperature is 97.4, pulse 70, respirations 18, O2 sat 95% on 2 liters, blood pressure 134/7 1. His weight is up to 129. His lungs are clear. Heart, regular rate. The right lower leg has jus t trace edema of the right knee. There is no effusion. There is no point tenderness over the leg. The left leg has increased edema with 3+ pitting edema. The redness is all resolved. There is also some seepage of serous fluid in the posterior aspect of the leg. LABORATORY: H&H 11.5 and 35.9, WBC count 6300 with 68% segs, 18% lymphocytes, and platelet count up to 66,000. His sodium 140, potassium 4.5, BUN stable at 60. Creatinine dropped to 2.53. GFR up to 24, glucose 125. ASSESSMENT: 1. Severe weakness and deconditioning. A. Secondary to recent multiple hospitalizations. His ischemic cardiomyopathy with recent acute episodes of congestive failure and his chronic low back pain. B. Continued improvement with his walking distance using a rolling walker for support. Continue d improvement in his transference as of 02/02/2017. C. Continued improvement as of 02/08/2017. 2. Recent multiple hospitalizations. A. [facility] from 12/20/2016-12/28/2016 for a non-ST segment elevated myocardial infar ction and acute bronchitis. B. [facility] from 12/28/2016 to 01/11/2017 for severe weakne ss and deconditioning and acute bronchitis. C. [facility] from 01/17/2017 until 01/22/2017 for acute on chronic sys tolic congestive heart failure. 3. Ischemic cardiomyopathy. A. Ejection fraction 20-25% with severe dilation of the left atrium and right atrium and akineti c motion of the inferior left ventricle and enlargement of the left ventricle with severe tricuspid regur gitation and moderate mitral regurgitation on 01/18/2017. B. Complicated by chronic diastolic and systolic congestive heart failure. C. Status post AICD/pacemaker. 1. Status post battery replacement on 01/17/2017. Incision healing well as of 02/07/2017. D. No evidence of acute congestive heart failure as of 02/08/2017. 4. Coronary artery disease. A. Status post CAB. B. Complicated by ischemic cardiomyopathy. C. History of non-ST segment elevated myocardial infarction on 12/20/2016, managed medically. D. Asymptomatic as of 02/08/2017. 5. Chronic atrial fibrillation. A. Rate controlled. B. Recent anticoagulant with Eliquis stopped due to frequent falls. 6. Hypertension. 7. Stage 4 chronic kidney disease. A. GFR improved to 24 as of 02/08/2017. 8. Obstructive sleep apnea. A. Uses CPAP when sleeping. 9. Chronic hypoxemia, uses O2 when sleeping and p.r.n. 10. Chronic obstructive pulmonary disease. 11. Peripheral neuropathy of the lower extremity. 12. Multiple contusions from multiple falls. A. Gradually resolving as of 02/01/2017. 13. Chronic low back pain secondary to spondylosis. A. Controlled as of 02/01/2017. 14. Insomnia. A. Controlled as of 01/31/2017. 15. Code status: DNR. 16. Anasarca. A. Resolving as of 02/06/2017. 17. Thrombocytopenia. A. Improved with platelet count up to 66,000 as of 02/08/2017. 18. Constipation. 19. Cellulitis of the left lower leg as of 02/04/2017. A. Resolved as of 02/08/2017. 20. Multiple abrasions with secondary infection over the right knee and left hand as of 02/04/2017. 21. Pseudomonas aeruginosa bacteremia on 2/2 blood cultures drawn on 02/06/2017. A. Sensitivity shows the Pseudomonas is sensitive to the cefepime. B. Repeat blood cultures drawn on 02/06/2017 shows no growth to date x2 as of 02/07/2017. C. Etiology of the bacteremia, probably from the infected wound on the left hand and right knee. 22. Febrile illness. A. Etiology secondary to the Pseudomonas bacteremia and cellulitis. B. Continued improvement as of 02/08/2017. 23. Increased edema in the left lower leg, probably from the chronic venous insufficiency, rule out d eep venous thrombosis. Also, rule out deep venous thrombosis of the right leg since he has a continu al pain in the popliteal space. PLAN: Will wrap the left leg with Kerlix and then 2 layers of Erasmo bandages from the toes to the knee s. We will arrange for venous Doppler of the lower extremities to rule out DVT.
[2017-02-08] MEDS: Acetaminophen 325 MG TAB PO PRN (21:29)
[2017-02-09] MEDS: traMADol HCl 50 MG TAB PO PRN (02:33)
[2017-02-09 05:30] LABS: Anion Gap 17 mmol/L (10-20); BUN (Urea Nitrogen) 58 mg/dL (8.4-25.7); Calc. Creatinine Clearance 33 mL/min (70-130); Calcium 8.9 mg/dL (7.8-10.44); Carbon Dioxide 25 mmol/L (23-31); Chloride 102 mmol/L (98-107); Estimated GFR-MDRD 25; Glucose 115 mg/dL (83-110); Sodium 139 mmol/L (136-145)
[2017-02-09] MEDS: Potassium Chloride 10 MEQ TAB PO SCH (09:39)
[2017-02-09] MEDS: Aspirin 81 mg Enteric Coated Tablet PO SCH (09:39)
[2017-02-09] MEDS: Pregabalin 25 MG CAP PO SCH ×3 (09:40→21:12)
[2017-02-09] MEDS: Furosemide 40 MG TAB PO SCH ×2 (09:40→21:11)
[2017-02-09] MEDS: Polyethylene Glycol 3350 17 GM Packet PO SCH (09:40)
[2017-02-09] MEDS: Pregabalin 50 MG CAP PO SCH ×3 (09:41→21:12)
[2017-02-09] MEDS: Silver Sulfadiazine 1% Cream 50 GM JAR TOP SCH ×2 (09:43→21:17)
[2017-02-09] MEDS: Clindamycin/D5W 600 MG in Premix Bag 1 BAG IVPB SCH ×2 (09:50→21:07)
[2017-02-09] MEDS: Cefepime 1 GM, Admixture Fee 1 EACH in Sterile Water 10 ML SLOW IVP SCH (11:32)
[2017-02-09] MEDS ORDERED: Sodium Chloride 0.9% 20 ML ONE (21:04)
--- NOTE | 2017-02-09 21:13 | PRG ---
DATE OF SERVICE: 02/09/2017 SUBJECTIVE: The patient is feeling a lot better today, says the left leg feels better. The swelling is down in the area behind the right knee is not hurting like it was overall feels much better. Yes terday, the patient did go for his scans, venous Doppler scans on the lower legs, and both of them sh owed no evidence of DVT. OBJECTIVE: GENERAL: The patient sitting up in a bedside chair. He is alert, talkative, and appears very comfor table and in no distress. VITAL SIGNS: His vital signs shows a temperature of 95, pulse 91, respirations 20, O2 sat 93% on 2 l iters, blood pressure 135/87. His weight is down to 222. LUNGS: His lungs are clear. HEART: Regular rate. Incision over the left upper anterior chest for the battery replacement on the AICD is healing well. There is no surrounding redness. EXTREMITIES: The lower extremities are much better. There is just trace edema on the right leg. Le ft leg has 2+ edema, but obviously much smaller than yesterday. There is no redness and there is no serous seepage from the leg. The wound over the right patella is clean and looks better. No surroun ding redness. The wound on the dorsum of the left hand also looks better and smaller. LABORATORY DATA: His lab work shows sodium of 139, potassium of 5, BUN dropped to 58, creatinine andrea pped to 2.4, GFR increased to 25. FBS 115. ASSESSMENT: 1. Severe weakness and deconditioning. A. Secondary to recent multiple hospitalizations. His ischemic cardiomyopathy with recent acute episodes of congestive failure and his chronic low back pain. B. Continued improvement with his walking distance using a rolling walker for support. Continue d improvement in his transference as of 02/02/2017. C. Improved as of 02/09/2017. 2. Recent multiple hospitalizations. A. [facility] from 12/20/2016-12/28/2016 for a non-ST segment elevated myocardial infar ction and acute bronchitis. B. [facility] from 12/28/2016 to 01/11/2017 for severe weakness and deconditioning and acu te bronchitis. C. [facility] from 01/17/2017 until 01/22/2017 for acute on chronic sys tolic congestive heart failure. 3. Ischemic cardiomyopathy. A. Ejection fraction 20-25% with severe dilation of the left atrium and right atrium and akineti c motion of the inferior left ventricle and enlargement of the left ventricle with severe tricuspid regur gitation and moderate mitral regurgitation on 01/18/2017. B. Complicated by chronic diastolic and systolic congestive heart failure. C. Status post AICD/pacemaker. 1. Status post battery replacement on 01/17/2017. Incision healing with no surrounding redn ess or drainage as of 02/09/2017. D. No evidence of acute congestive heart failure as of 02/09/2017. 4. Coronary artery disease. A. Status post CAB. B. Complicated by ischemic cardiomyopathy. C. History of non-ST segment elevated myocardial infarction on 12/20/2016, managed medically. D. Asymptomatic as of 02/08/2017. 5. Chronic atrial fibrillation. A. Rate controlled. B. Recent anticoagulant with Eliquis stopped due to frequent falls. 6. Hypertension. 7. Stage 4 chronic kidney disease. A. GFR improved to 25 as of 02/09/2017. 8. Obstructive sleep apnea. A. Uses CPAP when sleeping. 9. Chronic hypoxemia, uses O2 when sleeping and p.r.n. 10. Chronic obstructive pulmonary disease. 11. Peripheral neuropathy of the lower extremity. 12. Multiple contusions from multiple falls. A. Gradually resolving as of 02/01/2017. 13. Chronic low back pain secondary to spondylosis. A. Controlled as of 02/09/2017. 14. Insomnia. A. Controlled as of 02/09/2017. 15. Code status: DNR. 16. Anasarca. A. Resolving as of 02/06/2017. 17. Thrombocytopenia. A. Improved with platelet count up to 66,000 as of 02/08/2017. 18. Constipation. 19. Cellulitis of the left lower leg as of 02/04/2017. A. Resolved as of 02/08/2017. 20. Multiple abrasions with secondary infection over the right knee and left hand as of 02/04/2017. 21. Pseudomonas aeruginosa bacteremia on 2/2 blood cultures drawn on 02/06/2017. A. Sensitivity shows the Pseudomonas is sensitive to the cefepime. B. Repeat blood cultures drawn on 02/06/2017 shows no growth to date x2 as of 02/07/2017. C. Etiology of the bacteremia, probably from the infected wound on the left hand and right knee. D. On day 6 of IV cefepime as of 02/09/2017. 22. Febrile illness. A. Etiology secondary to the Pseudomonas bacteremia and cellulitis. B. Continued improvement as of 02/08/2017. 23. Increased edema left lower leg, improve. A. Seepage is stopped. B. Venous Doppler of the lower extremities showed no evidence of DVT done on 02/08/2017. PLAN: Continue present care. Continue IV cefepime. I will continue wrapping the left lower leg wit h 2 layer compression wraps, but can stop the Kerlix since there is no more seepage. Continue physic al therapy.
[2017-02-10] MEDS: Aspirin 81 mg Enteric Coated Tablet PO SCH (09:10)
[2017-02-10] MEDS: Clindamycin/D5W 600 MG in Premix Bag 1 BAG IVPB SCH ×2 (09:10→20:36)
[2017-02-10] MEDS: Furosemide 40 MG TAB PO SCH ×2 (09:11→20:35)
[2017-02-10] MEDS: Pregabalin 25 MG CAP PO SCH ×3 (09:12→20:36)
[2017-02-10] MEDS: Polyethylene Glycol 3350 17 GM Packet PO SCH (09:12)
[2017-02-10] MEDS: Pregabalin 50 MG CAP PO SCH ×3 (09:13→20:35)
[2017-02-10] MEDS: Silver Sulfadiazine 1% Cream 50 GM JAR TOP SCH ×2 (09:49→20:36)
[2017-02-10] MEDS: Cefepime 1 GM, Admixture Fee 1 EACH in Sterile Water 10 ML SLOW IVP SCH (11:56)
[2017-02-11 05:47] LABS: Hemoglobin 12.8 g/dL (14.0-18.0); Mean Corpuscular HGB CONC 32.5 g/dL (32.0-36.0); Mean Corpuscular Hemoglobin 31.6 pg (27.0-31.0); Mean Corpuscular Volume 97.2 fL (80.0-94.0); RBC Distribution Width 15.4 % (11.5-14.5); Red Blood Cell (RBC) Count 4.05 mill/uL (4.70-6.10); White Blood Cell (WBC) Count 6.1 thou/uL (4.8-10.8)
[2017-02-11 05:48] LABS: #Basophils 0.1 thou/uL (0.0-0.2); #Eosinphils 0.3 thou/uL (0.0-0.7); #Lymphocytes 1.1 thou/uL (1.20-3.40); #Monocytes 0.5 thou/uL (0.11-0.59); #Neutrophils 4.1 thou/uL (1.40-6.50); %Basophils 1.9 % (0.0-1.0); %Eosinophils 4.9 % (0.0-10.0); %Monocytes 8.5 % (0.0-10.0); %Neutrophils 66.7 % (42.0-75.0); Manual Diff?? NO; Mean Platelet Volume 12.3 fL (7.4-10.4); Platelet Count 80 thou/uL (130-400)
[2017-02-11 05:49] LABS: Anion Gap 20 mmol/L (10-20); Anisocytosis SLIGHT = 6-15 cells (100X) (0-5/hpf); BUN (Urea Nitrogen) 54 mg/dL (8.4-25.7); Calc. Creatinine Clearance 34 mL/min (70-130); Calcium 8.9 mg/dL (7.8-10.44); Carbon Dioxide 19 mmol/L (23-31); Chloride 106 mmol/L (98-107); Estimated GFR-MDRD 27; Giant Platelets SLIGHT; Glucose 122 mg/dL (83-110); Hypochromia MODERATE=16-30 cells (100X) (0-5/hpf); PLT Morphology Comment Appears Decreased; Poikilocytosis SLIGHT = 6-15 cells (100X) (0-5/hpf); Potassium 4.8 mmol/L (3.5-5.1); RBC Morphology Abnormal; Sodium 140 mmol/L (136-145)
[2017-02-11] MEDS: Clindamycin/D5W 600 MG in Premix Bag 1 BAG IVPB SCH ×2 (09:26→20:46)
[2017-02-11] MEDS: Aspirin 81 mg Enteric Coated Tablet PO SCH (09:26)
[2017-02-11] MEDS: Polyethylene Glycol 3350 17 GM Packet PO SCH (09:27)
[2017-02-11] MEDS: Furosemide 40 MG TAB PO SCH ×2 (09:27→20:47)
[2017-02-11] MEDS: Pregabalin 50 MG CAP PO SCH ×3 (09:28→20:47)
[2017-02-11] MEDS: Pregabalin 25 MG CAP PO SCH ×3 (09:28→20:48)
[2017-02-11] MEDS: Cefepime 1 GM, Admixture Fee 1 EACH in Sterile Water 10 ML SLOW IVP SCH (11:38)
[2017-02-11] MEDS: traMADol HCl 50 MG TAB PO PRN (11:41)
[2017-02-11] MEDS: Silver Sulfadiazine 1% Cream 50 GM JAR TOP SCH ×2 (11:51→20:47)
--- NOTE | 2017-02-11 12:15 | PRG ---
DATE OF SERVICE: 02/11/2017 SUBJECTIVE: The patient says he is doing better. He is doing better with his therapy. He is walkin g longer distances and only uses his walker for support. The swelling in the left leg has been well c ontrolled with the use of compression wraps. He has had no shortness of breath. OBJECTIVE: The patient is sitting in his lounge chair. He is alert and talkative, and appears very comfortable and in no distress. Temp 96.3, pulse 109. His respirations are 18, blood pressure 123/8 6. His O2 sat has been 92% on 2 liters. His lungs are clear. Heart, regular rate. Extremities; th ere is no edema in the right leg, edema in the left arm, resolved. The edema in the left lower leg j ust trace, it is well controlled with the 2-layer Erasmo wraps to the lower leg that he has on. His taqueria ght is stable at 219. Skin, the wound over the right knee has no surrounding redness, it is smaller and clean. The wound on the left dorsal hand has no surrounding redness and is smaller and clean. H is labs shows an H&H of 12.8 and 39.4. White cell count 6100 with 67% segs, 18% lymphocytes, and a p latelet count of 80,000. His sodium 140, potassium 4.8, BUN down to 54, creatinine down to 2.34, GFR is up to 27, glucose 122. ASSESSMENT: 1. Severe weakness and deconditioning. A. Secondary to recent multiple hospitalizations. His ischemic cardiomyopathy with recent acute episodes of congestive failure and his chronic low back pain. B. Continued improvement with his walking distance using a rolling walker for support. Continue d improvement in his transference as of 02/02/2017. C. Continued improvement as of 02/11/2017. 2. Recent multiple hospitalizations. A. [facility] from 12/20/2016-12/28/2016 for a non-ST segment elevated myocardial infar ction and acute bronchitis. B. [facility] from 12/28/2016 to 01/11/2017 for severe weakness and deconditioning and acu te bronchitis. C. [facility] from 01/17/2017 until 01/22/2017 for acute on chronic sys tolic congestive heart failure. 3. Ischemic cardiomyopathy. A. Ejection fraction 20-25% with severe dilation of the left atrium and right atrium and akineti c motion of the inferior left ventricle and enlargement of the left ventricle with severe tricuspid regur gitation and moderate mitral regurgitation on 01/18/2017. B. Complicated by chronic diastolic and systolic congestive heart failure. C. Status post AICD/pacemaker. 1. Status post battery replacement on 01/17/2017. Incision healing with no surrounding redn ess or drainage as of 02/11/2017. D. No evidence of acute congestive heart failure as of 02/11/2017. 4. Coronary artery disease. A. Status post CAB. B. Complicated by ischemic cardiomyopathy. C. History of non-ST segment elevated myocardial infarction on 12/20/2016, managed medically. D. Asymptomatic as of 02/11/2017. 5. Chronic atrial fibrillation. A. Rate controlled. B. Recent anticoagulant with Eliquis stopped due to frequent falls. 6. Hypertension. 7. Stage 4 chronic kidney disease. A. GFR has improved to 27 as of 02/11/2017. 8. Obstructive sleep apnea. A. Uses CPAP when sleeping. 9. Chronic hypoxemia, uses O2 when sleeping and p.r.n. 10. Chronic obstructive pulmonary disease. 11. Peripheral neuropathy of the lower extremity. 12. Multiple contusions from multiple falls. A. Gradually resolving as of 02/01/2017. 13. Chronic low back pain secondary to spondylosis. A. Controlled as of 02/09/2017. 14. Insomnia. A. Controlled as of 02/09/2017. 15. Code status: DNR. 16. Anasarca. A. Resolved as of 02/11/2017. 17. Thrombocytopenia. A. Improved with platelet count up to 80,000 as of 02/11/2017. 18. Constipation. 19. Cellulitis of the left lower leg as of 02/04/2017. A. Resolved as of 02/08/2017. 20. Multiple abrasions with secondary infection over the right knee and left hand as of 02/04/2017. 21. Pseudomonas aeruginosa bacteremia on 2/2 blood cultures drawn on 02/06/2017. A. Sensitivity shows the Pseudomonas is sensitive to the cefepime. B. Repeat blood cultures drawn on 02/06/2017 shows no growth to date x2 as of 02/07/2017. C. Etiology of the bacteremia, probably from the infected wound on the left hand and right knee. D. On day 8 of IV cefepime as of 02/11/2017. 22. Febrile illness. A. Etiology secondary to the Pseudomonas bacteremia and cellulitis. B. Continued improvement as of 02/08/2017. 23. Increased edema left lower leg, improve. A. Seepage is stopped. B. Venous Doppler of the lower extremities showed no evidence of DVT done on 02/08/2017. C. Much improved edema in the left leg, well controlled with the 2-layer compression wraps. PLAN: Continue present care. We will stop his IV cefepime today which will be day 9 and switch him to Levaquin, which the Pseudomonas is sensitive to. Continue physical therapy. If he continues to d o well, anticipate discharge by 02/13/2017.
[2017-02-11] MEDS: Melatonin 3 MG TAB PO PRN (20:59)
[2017-02-12] MEDS: Aspirin 81 mg Enteric Coated Tablet PO SCH (08:47)
[2017-02-12] MEDS: Furosemide 40 MG TAB PO SCH ×2 (08:47→20:33)
[2017-02-12] MEDS: Pregabalin 25 MG CAP PO SCH ×3 (08:47→20:33)
[2017-02-12] MEDS: Polyethylene Glycol 3350 17 GM Packet PO SCH (08:47)
[2017-02-12] MEDS: Pregabalin 50 MG CAP PO SCH ×3 (08:48→20:34)
[2017-02-12] MEDS: Silver Sulfadiazine 1% Cream 50 GM JAR TOP SCH ×2 (08:48→20:34)
--- NOTE | 2017-02-12 12:20 | PRG ---
DATE OF SERVICE: 02/12/2017 SUBJECTIVE: The patient said he is feeling good. He has had no shortness of breath. He is making c ontinual progress with his therapy. He says his leg is feeling good. The left leg swelling is down. He has continued to wear the 2-layer compression wraps. OBJECTIVE: The patient is sitting up in his chair. He is alert, appears very comfortable, talkative , and in no distress. His temp 98.2, pulse 70, respirations 22, O2 sat 97% on 2 liters, blood pressu re 131/70. Weight is 218. Lungs are clear. Heart, regular rate. Extremities; there is no edema on the right leg, and just trace on the left with the 2 layer compression wraps. The wound over the ri ght patella continues to get smaller and is clean with no surrounding redness. The wound on the left dorsal hand also has improved and smaller with no surrounding redness and clean. ASSESSMENT: 1. Severe weakness and deconditioning. A. Secondary to recent multiple hospitalizations. His ischemic cardiomyopathy with recent acute episodes of congestive failure and his chronic low back pain. B. Continued improvement with his walking distance using a rolling walker for support. Continue d improvement in his transference as of 02/02/2017. C. Continued improvement with excellent walking and excellent distance and independent transfers as of 02/12/2017. 2. Recent multiple hospitalizations. A. [facility] from 12/20/2016-12/28/2016 for a non-ST segment elevated myocardial infar ction and acute bronchitis. B. [facility] from 12/28/2016 to 01/11/2017 for severe weakness and deconditioning and acu te bronchitis. C. [facility] from 01/17/2017 until 01/22/2017 for acute on chronic sys tolic congestive heart failure. 3. Ischemic cardiomyopathy. A. Ejection fraction 20-25% with severe dilation of the left atrium and right atrium and akineti c motion of the inferior left ventricle and enlargement of the left ventricle with severe tricuspid regur gitation and moderate mitral regurgitation on 01/18/2017. B. Complicated by chronic diastolic and systolic congestive heart failure. C. Status post AICD/pacemaker. 1. Status post battery replacement on 01/17/2017. Incision healing with no surrounding redn ess or drainage as of 02/12/2017. D. No evidence of acute congestive heart failure as of 02/12/2017. 4. Coronary artery disease. A. Status post CAB. B. Complicated by ischemic cardiomyopathy. C. History of non-ST segment elevated myocardial infarction on 12/20/2016, managed medically. D. Asymptomatic as of 02/12/2017. 5. Chronic atrial fibrillation. A. Rate controlled. B. Recent anticoagulant with Eliquis stopped due to frequent falls. 6. Hypertension. 7. Stage 4 chronic kidney disease. A. GFR has improved to 27 as of 02/11/2017. 8. Obstructive sleep apnea. A. Uses CPAP when sleeping. 9. Chronic hypoxemia, uses O2 when sleeping and p.r.n. 10. Chronic obstructive pulmonary disease. 11. Peripheral neuropathy of the lower extremity. 12. Multiple contusions from multiple falls. A. Resolving as of 02/12/2017. 13. Chronic low back pain secondary to spondylosis. A. Controlled as of 02/12/2017. 14. Insomnia. A. Controlled as of 02/09/2017. 15. Code status: DNR. 16. Anasarca. A. Resolved as of 02/11/2017. 17. Thrombocytopenia. A. Improved with platelet count up to 80,000 as of 02/11/2017. 18. Constipation. 19. Cellulitis of the left lower leg as of 02/04/2017. A. Resolved as of 02/08/2017. 20. Multiple abrasions with secondary infection over the right knee and left hand as of 02/04/2017. A. Gradually healing as of 02/12/2017. 21. Pseudomonas aeruginosa bacteremia on 2/2 blood cultures drawn on 02/06/2017. A. Sensitivity shows the Pseudomonas is sensitive to the cefepime. B. Repeat blood cultures drawn on 02/06/2017 shows no growth to date x2 as of 02/07/2017. C. Etiology of the bacteremia, probably from the infected wound on the left hand and right knee. D. On day 9 of IV cefepime as of 02/12/2017. 22. Febrile illness. A. Etiology secondary to the Pseudomonas bacteremia and cellulitis. B. Continued improvement as of 02/08/2017. 23. Increased edema left lower leg, improve. A. Seepage is stopped. B. Venous Doppler of the lower extremities showed no evidence of DVT done on 02/08/2017. C. Controlled with compression wrap on the left lower leg as of 02/12/2017. PLAN: Discontinue the IV clindamycin. Discontinue the IV cefepime. We will place the patient on Le vaquin 500 daily for a week. Anticipate discharge tomorrow if he continues to do well. At home, [facility] will see him and arrange for in-home therapy.
[2017-02-12] MEDS: traMADol HCl 50 MG TAB PO PRN (13:59)
[2017-02-13] MEDS: traMADol HCl 50 MG TAB PO PRN (03:08)
[2017-02-13 05:36] VITALS: BMI 29.6
[2017-02-13 08:03] VITALS: BP 131/73; TEMP 97.7
[2017-02-13] MEDS: Pregabalin 25 MG CAP PO SCH (08:52)
[2017-02-13] MEDS: Pregabalin 50 MG CAP PO SCH (08:52)
[2017-02-13] MEDS: Furosemide 40 MG TAB PO SCH (08:53)
[2017-02-13] MEDS: Polyethylene Glycol 3350 17 GM Packet PO SCH (08:53)
[2017-02-13] MEDS: Aspirin 81 mg Enteric Coated Tablet PO SCH (08:53)
[2017-02-13] MEDS: Silver Sulfadiazine 1% Cream 50 GM JAR TOP SCH (08:56)
--- NOTE | 2017-02-13 09:52 | DIS ---
FINAL DIAGNOSES: 1. Severe weakness and deconditioning. A. Secondary to recent multiple hospitalizations, acute congestive heart failure and his chronic low back pain. B. Marked improvement as of 02/13/2017 with increasing walking distance and independent transfers. 2. Recent multiple hospitalizations. A. [facility] from 12/20/2016-12/28/2016 for a non-ST segment elevated myocardial infarction and acute bronchitis. B. [facility] from 12/28/2016 to 01/11/2017 for severe weakness and deconditioning and acute bronchitis. C. [facility] from 01/17/2017 until 01/22/2017 for acute on chronic systolic congestive heart failure. 3. Ischemic cardiomyopathy. A. Ejection fraction 20-25% with severe dilation of the left atrium and right atrium and akinetic motion of the inferior left ventricle and enlargement of the left ventricle with severe tricuspid regurgitation and moderate mitral regurgitation on 01/18/2017. B. Complicated by chronic diastolic and systolic congestive heart failure. C. Status post AICD/pacemaker. 1. Status post battery replacement on 01/17/2017. Incision healing with no surrounding redness or drainage as of 02/12/2017. D. No evidence of acute congestive heart failure as of 02/13/2017. 4. Coronary artery disease. A. Status post CAB. B. Complicated by ischemic cardiomyopathy. C. History of non-ST segment elevated myocardial infarction on 12/20/2016, managed medically. D. Asymptomatic as of 02/13/2017. 5. Chronic atrial fibrillation. A. Rate controlled. B. Recent anticoagulant with Eliquis stopped due to frequent falls. 6. Hypertension. 7. Stage 4 chronic kidney disease. A. GFR has improved to 27 as of 02/11/2017. 8. Obstructive sleep apnea. A. Uses CPAP when sleeping. 9. Chronic hypoxemia, uses O2 when sleeping and p.r.n. 10. Chronic obstructive pulmonary disease. 11. Peripheral neuropathy of the lower extremity. 12. Multiple contusions from multiple falls. A. Resolving as of 02/12/2017. 13. Chronic low back pain secondary to spondylosis. A. Controlled as of 02/12/2017. 14. Insomnia. A. Controlled as of 02/09/2017. 15. Code status: DNR. 16. Anasarca. A. Resolved as of 02/11/2017. 17. Thrombocytopenia. A. Improved with platelet count up to 80,000 as of 02/11/2017. 18. Constipation. 19. Cellulitis of the left lower leg as of 02/04/2017. A. Resolved as of 02/08/2017. 20. Multiple abrasions with secondary infection over the right knee and left hand as of 02/04/2017. A. Gradually healing as of 02/12/2017. 21. Pseudomonas aeruginosa bacteremia on 02/04/2017. A. Sensitivity shows the Pseudomonas is sensitive to the cefepime. B. Repeat blood cultures drawn on 02/06/2017 shows no growth x2 as of 02/07. C. Etiology of the bacteremia, probably from the infected wound on the left hand and right knee. D. On day 9 of IV cefepime as of 02/12/2017. 22. Febrile illness. A. Etiology secondary to the Pseudomonas bacteremia and cellulitis. B. Resolved 23. Increased edema left lower leg, improve. A. Seepage is stopped. B. Venous Doppler of the lower extremities showed no evidence of DVT done on 02/08/2017. C. Controlled with compression wrap on the left lower leg as of 02/13/2017. SUMMARY: The patient is an 81-year-old white male who lives at home with his who assists him with his ADLs and instrumental ADLs. He has a history of an ischemic cardiomyopathy with an ejection fraction of 25-30% and a history of chronic diastolic congestive failure. He also has a history of atrial fibrillation and the rate is controlled. He had been on Eliquis, but this was stopped due to frequent falls. He has a history of a stage 4 chronic kidney disease and severe low back pain, chronic, secondary to spondylosis. He has COPD and obstructive sleep apnea for which he is on CPAP when sleeping and supplemental O2 when sleeping due to hypoxemia. The patient had been hospitalized at [facility] from 12/20/2016 until 12/28/2016 for a non- ST segment elevated ME that was medically managed. He also had acute bronchitis and dehydration and acute on chronic renal failure. He was left extremely weak and consequently was transferred to [facility] where he was hospitalized for physical therapy from 12/28/2016 until 01/11/2017. The patient made marked improvement. His bronchitis, resolved. His acute renal failure, resolved. 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 As an outpatient he underwent replacement of the battery at [facility] on 01/17/2017. He subsequently at home became short of breath, had falls, sustaining multiple bruises and deep abrasion to the left dorsal hand and right patella. He was rehospitalized this time at [facility] in [place] for acute on chronic systolic congestive heart failure and chronic kidney disease and recurrent falls. During that time he was diuresed with marked improvement in his breathing, but was left still with generalized anasarca. His repeat echocardiogram still showed an ejection fraction of 20-25%, left atrium was moderately to severely dilated and there was enlargement of the right atrium. He had an akinetic motion the inferior wall of the left ventricle and the left ventricle was enlarged. He had moderate mitral regurgitation, severe tricuspid regurgitation. He was left with extreme weakness, anasarca, multiple bruising and abrasion to the patella on the right and the left dorsal hand. His Eliquis was stopped due to his frequent falls. He was discharged to [facility] on 01/22/2017. HOSPITAL COURSE: During his hospitalization the patient's lungs were clear, but he still had generalized anasarca with marked edema in the extremities, most especially in the left arm and the left leg. His admission weight was 229. His weight debi to 231. With elevation of the extremities and increase in his diuretics he gradually diuresed and gradually the edema improved. His discharge weight on 02/13/2017 was down to 218. He persisted with swelling in the left leg and had increased swelling in both lower extremities for which he underwent a bilateral venous Doppler that showed no evidence of DVTs. His left leg was wrapped with 2 layer compression wraps which helped control the swelling and by his discharge the edema in the left lower leg had resolved. During his hospitalization, he made excellent progress with his physical therapy and then on the morning of 02/04/2017 he became a little more confused. His O2 sat was a little lower than usual and his temperature was 100.5. His chest showed some rales at the base. Chest x-ray was unchanged, it showed marked cardiomegaly and obscuring of the left lower lobe. His urine was clear. His white cell count was elevated. He was placed on IV Rocephin and clindamycin for cellulitis that had been found on the left leg. It was felt that the fever was probably from the cellulitis. This was treated with clindamycin and the Rocephin was added in the event there was obscured left lower lobe pneumonia. His 2 blood cultures drawn on 02/04/2017 both came back growing gram-negative jaja that turned out to be a Pseudomonas aeruginosa resistant to the ceftriaxone, but sensitive to cefepime. The Rocephin was stopped and he was placed on cefepime for the bacteremia with Pseudomonas. The source of the Pseudomonas was felt to be secondary to the ulcerations from the deep abrasions on the right patella and the dorsum of the left hand. These had become very red around the wound and had a mucousy purulent type of covering. These were gradually improved with local care and dressing and were healing by the time of his discharge. The patient's cellulitis of the left leg resolved. Repeat blood cultures were drawn on 02/06/2017, which had no growth x2. He completed a 9-day course of IV cefepime and then was started on oral Levaquin, which the organism was sensitive to. This will be continued for a total of 7 days. He also developed thrombocytopenia with the rates down into the 40,000. This gradually improved to 80,000 as of 02/11/2017. His chronic renal failure, improved to a GFR of 27. He made marked improvement with his walking, he was walking with a rolling walker unassisted and transferring unassisted. The edema in the legs and the arm had all resolved as had the anasarca. By 2016 his condition improved such that it was felt like he could now be managed at home. He lives with his who will be his primary caregiver and [facility] will also be looking in on his care and arrange in-home physical therapy. DIET: Regular diet. No added salt, fluid restriction should be less than 2 liters a day. ACTIVITIES: Ambulate with the use of a walker. Left leg should be wrapped with 2 layer compression wraps using for his Erasmo bandages from the base of the toes to the knees when he is out of bed. Home Health will see patient for PT and OT for the instructions on the leg wraps and also wound care to the right knee and dorsum of the left hand. Wound care of these areas as follows; clean with saline, apply Silvadene cream and cover with the Mepilex daily. MEDICATIONS: Acetaminophen 325 mg 2 every 4 hours as needed, DuoNeb by nebulizer b.i.d. and q.4h. as needed, aspirin 81 mg daily, Dulcolax 10 mg daily p.r.n., Cymbalta 60 mg daily, Lasix 40 mg b.i.d. The patient should weigh daily and if his weight is more than 3 pounds should take Lasix two 40 mg 2 tablets in the morning and 1 in the afternoon on the days that his weight is up , Levaquin 500 mg daily x6 days, melatonin 3 mg at bedtime as needed, metoprolol succinate 100 mg b.i.d., pantoprazole 40 mg daily, MiraLax 17 grams in 8 ounces of water daily, Lyrica 75 mg t.i.d., Silvadene cream applied to the wounds on the dorsum of the left hand and right knee daily, tramadol 50 mg q.12h. as needed. FOLLOW UP: [facility] will see the patient for wound care, in home PT and OT and instructions on compression wraps to the left leg when out of bed. We will see the patient in followup in my office in 2 weeks. Prior to that visit, he will need a CBC and basic metabolic panel that can be drawn by [facility], [facility]. CODE STATUS: DNR. MTDD
== END 2017-02-13 11:15 | disposition home health service (06) | DRG 948 ==
LOC: MADMS 19:58
PROVIDERS: ADMIT Family Medicine; ATTEND Family Medicine
PROC: 5A09357 Assistance with Respiratory Ventilation, Less than 24 Consecutive Hours, Continuous Positive Airway Pressure (ICD-10-PCS; principal; 2017-01-22)
DX: R53.1 Weakness (principal); N18.4 Chronic kidney disease, stage 4 (severe); E11.22 Type 2 diabetes mellitus with diabetic chronic kidney disease; D69.6 Thrombocytopenia, unspecified; R78.81 Bacteremia; I13.0 Hypertensive heart and chronic kidney disease with heart failure and stage 1 through stage 4 chronic kidney disease, or unspecified chronic kidney disease; I50.42 Chronic combined systolic (congestive) and diastolic (congestive) heart failure; B96.5 Pseudomonas (aeruginosa) (mallei) (pseudomallei) as the cause of diseases classified elsewhere; L03.116 Cellulitis of left lower limb; I08.1 Rheumatic disorders of both mitral and tricuspid valves; I48.2 Chronic atrial fibrillation; J44.9 Chronic obstructive pulmonary disease, unspecified; I25.5 Ischemic cardiomyopathy; Z79.01 Long term (current) use of anticoagulants; M47.9 Spondylosis, unspecified; G47.33 Obstructive sleep apnea (adult) (pediatric); I25.2 Old myocardial infarction; Z91.81 History of falling; G89.29 Other chronic pain; M54.5 Low back pain; Z95.810 Presence of automatic (implantable) cardiac defibrillator; E78.5 Hyperlipidemia, unspecified; Z86.73 Personal history of transient ischemic attack (TIA), and cerebral infarction without residual deficits; I25.10 Atherosclerotic heart disease of native coronary artery without angina pectoris; Z95.1 Presence of aortocoronary bypass graft; E11.40 Type 2 diabetes mellitus with diabetic neuropathy, unspecified; Z66 Do not resuscitate; Z99.81 Dependence on supplemental oxygen; G47.00 Insomnia, unspecified; K59.00 Constipation, unspecified; S80.211A Abrasion, right knee, initial encounter; S60.512A Abrasion of left hand, initial encounter; Z16.29 Resistance to other single specified antibiotic
CPT/HCPCS: 36415; 71010; 80048; 81001; 85025; 87040; 87077; 87149; 87186; A4216; G8978-GP-CL; G8979-GP-CJ; J0692; J0696; J3490; J7050; J7620

== ENCOUNTER 2017-03-01 14:54 | Outpatient (CLI) | payer MEDICARE ==
[2017-03-01 15:16] LABS: Bilirubin Negative (Negative); Blood, Urine Negative (Negative); Clarity Clear (Clear); Glucose, Urine (Dipstick) Negative (Negative); Leukocyte Negative (Negative); Nitrite Negative (Negative); Protein, Urine (Dipstick) Trace mg/dL (Neg-Trace); Urobilinogen 0.2 mg/dL (0.2-1.0); pH, Urine 5.5 (5.0-9.0)
[2017-03-01 15:26] LABS: Anion Gap 19 mmol/L (10-20); BUN (Urea Nitrogen) 52 mg/dL (8.4-25.7); Calc. Creatinine Clearance 0 mL/min (70-130); Calcium 8.9 mg/dL (7.8-10.44); Carbon Dioxide 25 mmol/L (23-31); Chloride 108 mmol/L (98-107); Estimated GFR-MDRD 22; Glucose 99 mg/dL (83-110); Potassium 4.4 mmol/L (3.5-5.1); Sodium 148 mmol/L (136-145)
[2017-03-01 15:41] LABS: RBC/HPF 0-3 HPF (0-3); Squamous Epithelial 0-3 HPF (0-3); WBC/HPF None Seen HPF (0-3)
[2017-03-01 15:42] LABS: Bacteria/HPF Rare-Few HPF (None Seen)
[2017-03-01 15:58] LABS: #Basophils 0.1 thou/uL (0.0-0.2); #Eosinphils 0.1 thou/uL (0.0-0.7); #Lymphocytes 0.9 thou/uL (1.20-3.40); #Monocytes 0.5 thou/uL (0.11-0.59); #Neutrophils 3.2 thou/uL (1.40-6.50); %Basophils 1.1 % (0.0-1.0); %Lymphocytes 18.7 % (21.0-51.0); %Monocytes 10.8 % (0.0-10.0); %Neutrophils 66.3 % (42.0-75.0); Anisocytosis SLIGHT = 6-15 cells (100X) (0-5/hpf); Hemoglobin 12.8 g/dL (14.0-18.0); Hypochromia SLIGHT = 6-15 cells (100X) (0-5/hpf); Large Platelets SLIGHT; MDiff Complete? YES; Mean Corpuscular HGB CONC 30.3 g/dL (32.0-36.0); Mean Corpuscular Hemoglobin 27.7 pg (27.0-31.0); Mean Corpuscular Volume 91.6 fl (80.0-94.0); PLT Morphology Comment Appears Decreased; Platelet Count 51 thou/uL (130-400); RBC Distribution Width 16.4 % (11.5-14.5); Red Blood Cell (RBC) Count 4.63 mill/uL (4.70-6.10); White Blood Cell (WBC) Count 4.8 thou/uL (4.8-10.8)
== END 2017-03-01 14:55 | disposition home or self-care (01) ==
LOC: MADLABBHPM 14:54
PROVIDERS: ATTEND Family Medicine
DX: E11.22 Type 2 diabetes mellitus with diabetic chronic kidney disease (principal); I13.0 Hypertensive heart and chronic kidney disease with heart failure and stage 1 through stage 4 chronic kidney disease, or unspecified chronic kidney disease; N39.0 Urinary tract infection, site not specified; I50.9 Heart failure, unspecified; N18.9 Chronic kidney disease, unspecified
CPT/HCPCS: 80048; 81001; 85025; 87086